=== PATIENT | female | born 1950 | race Caucasian/White ===

== ENCOUNTER → 2016-09-24 | Outpatient (CLI) | payer OTHER ==
[~2016-09-24] MED LIST: /LAMO10TA OR; ASPI1TAB PO; CELE10TA PO; CELE20TA OR; CITALOPRAM PO; ENAL10TA2 OR; IBUP20TA PO; INHALER; LAMOTRIGINE PO; LEVA750T PO; LISI10TA4 OR; LOPR50TA OR; METO25TA74 PO; NICO14DI3 TD; NICO21DI4 TD; NIFE15CA PO; NORV5TAB OR; PROT1TAB2 PO; SERAX PO; THIA100T OR; TOPR50TA OR; TRAZ50TA OR; TRAZODONE PO; TYLE325T5 PO; VICO5TAB OR
--- NOTE | 2016-09-24 11:58 | REP ---
Clinical: Lung screening. Technique: Low-dose noncontrast lung screening imaged and viewed in lung windows only. Findings: The bilateral lung goodman are well-aerated, symmetric, and clear. Incidental note is made of a benign calcified granuloma at the left lung base. No significant pulmonary parenchymal consolidation, nodule or mass lesion. No pleural effusion. No pneumothorax. Mediastinum is grossly normal. Atherosclerotic changes of the coronary arteries noted. Impression: No significant pulmonary parenchymal process. Category Lung-RADS 1 Signed by Getachew Wright MD 09/24/2016 11:51 A
== END | disposition home or self-care (01) ==
LOC: M RAD 11:10
PROVIDERS: ATTEND Nurse Practitioner Family
DX: Z12.2 Encounter for screening for malignant neoplasm of respiratory organs (principal); F17.200 Nicotine dependence, unspecified, uncomplicated; R91.8 Other nonspecific abnormal finding of lung field

== ENCOUNTER → 2016-11-06 | Outpatient (REF) | payer OTHER ==
[~2016-11-06] MED LIST changes: +IBUP200T45 PO; -IBUP20TA PO
[2016-11-06 12:45] LABS: ALBUMIN 3.1 GM/DL (3.2-5.2); ALKALINE PHOSPHATASE 97 U/L (45-117); ALT/SGPT 12 U/L (12-78); ANION GAP 12 MEQ/L (8-16); AST/SGOT 21 U/L (15-37); BILIRUBIN,TOTAL 0.6 MG/DL (0.2-1.0); BLOOD UREA NITROGEN 7 MG/DL (7-18); CALCIUM LEVEL 8.8 MG/DL (8.8-10.2); CARBON DIOXIDE LEVEL 27 MEQ/L (21-32); CHLORIDE LEVEL 93 MEQ/L (98-107); CREATININE FOR GFR 0.69 MG/DL (0.55-1.02); GLOMERULAR FILTRATION RATE > 60.0 (>45); GLUCOSE, FASTING 113 MG/DL (80-110); MAGNESIUM LEVEL 1.8 MG/DL (1.8-2.4); POTASSIUM SERUM 4.5 MEQ/L (3.5-5.1); SODIUM LEVEL 132 MEQ/L (136-145); TOTAL PROTEIN 7.5 GM/DL (6.4-8.2)
== END ==
LOC: M SFHCPLAZ 09:15
PROVIDERS: ATTEND Nurse Practitioner Family
DX: I10 Essential (primary) hypertension (principal); E83.42 Hypomagnesemia

== ENCOUNTER 2017-03-16 03:43 | Emergency (ER) | payer OTHER ==
[~2017-03-16] VITALS: Ht 162.6 cm; Wt 59.0 kg
[~2017-03-16 03:43] MED LIST changes: -LEVA750T PO; +LEVA750T7 PO; +METO1TAB32 PO; -METO25TA74 PO
--- NOTE | 2017-03-16 04:50 | REPUSA ---
CLINICAL HISTORY: Head trauma. TECHNIQUE: Multiple axial brain CT scan sections were obtained from base to vertex without contrast a dministration. COMMENTS: There is no evidence of skull fracture. The study shows normal configuration of sella turcica. There are no intra or extra-axial collections. There is no mass effect or midline shift. There is no evidence of hematoma formation. No hydrocephal us is present. No abnormal calcifications are noted. No significant abnormalities are seen either in the posterior fossa or supratentorial compartment. Chronic mucosal inflammatory changes in the left frontal, maxillary sinuses and ethmoid air cells. IMPRESSION: Chronic sinusitis. No evidence of acute intracranial pathology. No intracranial hemorrhage or skull fracture. Thank you for your kind referral of this patient.
[2017-03-16] MEDS ORDERED: TETANUS/DIPHTHERIA TOX ADSORB ADULT 0.5ML SYR/VIAL (90714) IM ONE (05:00)
[2017-03-16] MEDS ORDERED: DERMABOND TOPICAL SKIN ADHESIVE TOP ONE (05:45)
[2017-03-16 06:20] VITALS: BP 143/68
== END 2017-03-16 06:50 | disposition home or self-care (01) ==
LOC: M ED 03:43 → EDBD 03:43 → M ED 06:50
DX: S01.81XA Laceration without foreign body of other part of head, initial encounter (principal); S51.012A Laceration without foreign body of left elbow, initial encounter; F10.120 Alcohol abuse with intoxication, uncomplicated; W19.XXXA Unspecified fall, initial encounter; Y92.410 Unspecified street and highway as the place of occurrence of the external cause; Y93.89 Activity, other specified; Y99.8 Other external cause status; I10 Essential (primary) hypertension; K21.9 Gastro-esophageal reflux disease without esophagitis; F32.9 Major depressive disorder, single episode, unspecified; F17.200 Nicotine dependence, unspecified, uncomplicated

== ENCOUNTER → 2017-04-26 | Outpatient (CLI) | payer OTHER ==
--- NOTE | 2017-04-26 12:05 | REPMRS ---
Patient History The patient states she had a clinical breast exam in 05/02 Patient is postmenopausal. Family history of breast cancer in maternal aunt at age 50 or over. Digital Woman Screen Mammo: April 26, 2017 - Exam #: [id number] Bilateral CC and MLO view(s) were taken. Technologist: Olga Lidia Khoury, Technologist Prior study comparison: April 27, 2016, digital woman screen mammo performed at [facility]. June 07, 2015, digital woman screen mammo performed at [facility] to [facility]. FINDINGS: The breast tissue is heterogeneously dense. This may lower the sensitivity of mammography. There has been no change in the appearance of the mammogram from the prior studies. There is a moderate amount of residual fibroglandular tissue which is fairly symmetric. There is no interval development of dominant mass, areas of architectural distortion, or clustered microcalcification typical of malignancy. ASSESSMENT: BI-RADS/ACR category 1 mammogram. Negative. Recommendation Routine screening mammogram in 1 year (for women over age 40). This mammogram was interpreted with the aid of an FDA-approved computer-aided dectection system. Electronically Signed By: Haider Burk MD 04/26/17 [id number]
== END ==
LOC: M WHC 08:51
PROVIDERS: ATTEND Nurse Practitioner Family
DX: Z12.31 Encounter for screening mammogram for malignant neoplasm of breast (principal); Z78.0 Asymptomatic menopausal state; Z80.3 Family history of malignant neoplasm of breast

== ENCOUNTER → 2017-05-02 | Outpatient (REF) | payer OTHER ==
[2017-05-02 12:02] LABS: MEAN CORPUSCULAR HGB CONC 33.6 g/dl (32.0-36.5); MEAN CORPUSCULAR VOLUME 95.2 fl (80.0-96.0); RED CELL DISTRIBUTION WIDTH 12.5 % (11.5-14.5)
[2017-05-02 12:17] LABS: ALBUMIN 3.3 GM/DL (3.2-5.2); ALKALINE PHOSPHATASE 105 U/L (45-117); ALT/SGPT 14 U/L (12-78); ANION GAP 7 MEQ/L (8-16); AST/SGOT 21 U/L (15-37); BILIRUBIN,TOTAL 0.7 MG/DL (0.2-1.0); BLOOD UREA NITROGEN 3 MG/DL (7-18); CARBON DIOXIDE LEVEL 31 MEQ/L (21-32); CHLORIDE LEVEL 97 MEQ/L (98-107); CHOLESTEROL LEVEL 150 MG/DL (<200); CREATININE FOR GFR 0.57 MG/DL (0.55-1.02); FERRITIN 71 NG/ML (8-252); GLOMERULAR FILTRATION RATE > 60.0 (>45); GLUCOSE, FASTING 115 MG/DL (80-110); MAGNESIUM LEVEL 1.9 MG/DL (1.8-2.4); POTASSIUM SERUM 4.5 MEQ/L (3.5-5.1); SODIUM LEVEL 135 MEQ/L (136-145); TOTAL PROTEIN 7.4 GM/DL (6.4-8.2); TRIGLYCERIDES LEVEL 70 MG/DL (<150)
== END ==
LOC: M SFHCPLAZ 08:14
PROVIDERS: ATTEND Nurse Practitioner Family
DX: D50.8 Other iron deficiency anemias (principal); I10 Essential (primary) hypertension; R73.01 Impaired fasting glucose; K21.9 Gastro-esophageal reflux disease without esophagitis

== ENCOUNTER → 2017-08-21 | Outpatient (REF) | payer MEDICARE ==
[2017-08-21 11:27] LABS: ALBUMIN 3.4 GM/DL (3.2-5.2); ALBUMIN/GLOBULIN RATIO 0.87 (1.00-1.93); ALKALINE PHOSPHATASE 85 U/L (45-117); ALT/SGPT 14 U/L (12-78); ANION GAP 9 MEQ/L (8-16); AST/SGOT 15 U/L (7-37); BILIRUBIN,TOTAL 0.4 MG/DL (0.2-1.0); BLOOD UREA NITROGEN 3 MG/DL (7-18); CARBON DIOXIDE LEVEL 28 MEQ/L (21-32); CHLORIDE LEVEL 91 MEQ/L (98-107); CHOLESTEROL LEVEL 137 MG/DL (<200); CREATININE FOR GFR 0.55 MG/DL (0.55-1.02); GLOMERULAR FILTRATION RATE > 60.0 (>45); GLUCOSE, FASTING 105 MG/DL (80-110); POTASSIUM SERUM 4.6 MEQ/L (3.5-5.1); SODIUM LEVEL 128 MEQ/L (136-145); TOTAL PROTEIN 7.3 GM/DL (6.4-8.2); TRIGLYCERIDES LEVEL 72 MG/DL (<150)
== END ==
LOC: M SFHCPLAZ 09:34
PROVIDERS: ATTEND Nurse Practitioner Family
DX: E55.9 Vitamin D deficiency, unspecified (principal); I10 Essential (primary) hypertension

== ENCOUNTER → 2017-08-28 | Outpatient (REF) | payer MEDICARE ==
[2017-08-28 10:52] LABS: BASO # 0.1 10^3/uL (0.0-0.2); BASO % 1.1 % (0.0-1.0); EOS # 0.4 10^3/uL (0.0-0.50); EOS % 4.1 % (0.0-3.0); IMMATURE GRANULOCYTE % 0.6 % (0-0); LYMPH # 3.1 10^3/uL (1.5-4.5); LYMPH % 35.1 % (24.0-44.0); MEAN CORPUSCULAR HEMOGLOBIN 31.1 pg (27.0-33.0); MEAN CORPUSCULAR HGB CONC 33.9 g/dl (32.0-36.5); MEAN CORPUSCULAR VOLUME 91.6 fl (80.0-96.0); MONO % 11.6 % (0.0-5.0); NEUTROPHILS # 4.2 10^3/uL (1.8-7.7); NEUTROPHILS % 47.5 % (36.0-66.0); PLATELET COUNT, AUTOMATED 331 10^3/uL (150-450); RED CELL DISTRIBUTION WIDTH 12.1 % (11.5-14.5); WHITE BLOOD COUNT 8.8 10^3/uL (4.0-10.0)
[2017-08-28 11:24] LABS: FERRITIN 145 NG/ML (8-252); MAGNESIUM LEVEL 1.8 MG/DL (1.8-2.4); PERCENT SATURATION 27.6 % (13.2-45.0); TOTAL IRON BINDING CAPACITY 221 UG/DL (250-450)
[2017-08-28 11:50] LABS: FOLATE > 24.0 NG/ML; VITAMIN B12 LEVEL 1309 PG/ML
== END ==
LOC: M SFHCPLAZ 08:36
PROVIDERS: ATTEND Nurse Practitioner Family
DX: R53.83 Other fatigue (principal); K21.9 Gastro-esophageal reflux disease without esophagitis; I10 Essential (primary) hypertension; J45.20 Mild intermittent asthma, uncomplicated; J30.89 Other allergic rhinitis; D50.8 Other iron deficiency anemias; E55.9 Vitamin D deficiency, unspecified; Z23 Encounter for immunization; Z87.898 Personal history of other specified conditions

== ENCOUNTER → 2017-11-26 | Outpatient (REF) | payer MEDICARE ==
[2017-11-26 12:18] LABS: ALBUMIN 3.5 GM/DL (3.2-5.2); ALBUMIN/GLOBULIN RATIO 0.85 (1.00-1.93); ALKALINE PHOSPHATASE 108 U/L (45-117); ALT/SGPT 13 U/L (12-78); ANION GAP 9 MEQ/L (8-16); AST/SGOT 19 U/L (7-37); BILIRUBIN,TOTAL 0.5 MG/DL (0.2-1.0); BLOOD UREA NITROGEN 4 MG/DL (7-18); CALCIUM LEVEL 8.9 MG/DL (8.8-10.2); CARBON DIOXIDE LEVEL 29 MEQ/L (21-32); CHLORIDE LEVEL 94 MEQ/L (98-107); CHOLESTEROL LEVEL 181 MG/DL (<200); CHOLESTEROL RISK RATIO 1.508 (<5); CREATININE FOR GFR 0.64 MG/DL (0.55-1.30); GLOMERULAR FILTRATION RATE > 60.0 (>45); GLUCOSE, FASTING 123 MG/DL (70-100); HDL CHOLESTEROL 120 MG/DL (>40); LDL CHOLESTEROL 45.6 MG/DL (<100); NON-HDL-C 61 MG/DL; POTASSIUM SERUM 4.4 MEQ/L (3.5-5.1); SODIUM LEVEL 132 MEQ/L (136-145); TOTAL PROTEIN 7.6 GM/DL (6.4-8.2); TRIGLYCERIDES LEVEL 77 MG/DL (<150)
== END ==
LOC: M SFHCPLAZ 08:29
DX: I10 Essential (primary) hypertension (principal)
CPT/HCPCS: 80053

== ENCOUNTER → 2018-01-09 | Outpatient (CLI) | payer MEDICARE | LOC: M RAD 09:03 | DX: F17.210 Nicotine dependence, cigarettes, uncomplicated (principal) | CPT/HCPCS: G0297 ==

== ENCOUNTER → 2018-03-06 | Outpatient (REF) | payer MEDICARE ==
[2018-03-06 12:33] LABS: ALBUMIN 3.5 GM/DL (3.2-5.2); ALKALINE PHOSPHATASE 144 U/L (45-117); ALT/SGPT 25 U/L (12-78); ANION GAP 9 MEQ/L (8-16); AST/SGOT 36 U/L (7-37); BILIRUBIN,TOTAL 0.8 MG/DL (0.2-1.0); BLOOD UREA NITROGEN 6 MG/DL (7-18); CARBON DIOXIDE LEVEL 32 MEQ/L (21-32); CHLORIDE LEVEL 93 MEQ/L (98-107); CREATININE FOR GFR 0.67 MG/DL (0.55-1.30); GLOMERULAR FILTRATION RATE > 60.0 (>45); GLUCOSE, FASTING 130 MG/DL (70-100); POTASSIUM SERUM 4.4 MEQ/L (3.5-5.1); SODIUM LEVEL 134 MEQ/L (136-145); TOTAL PROTEIN 7.4 GM/DL (6.4-8.2)
[2018-03-06 12:56] LABS: ESTIMATED AVERAGE GLUCOSE 100 MG/DL (60-110); HEMOGLOBIN A1c 5.1 %
== END ==
LOC: M SFHCPLAZ 08:11
DX: R73.01 Impaired fasting glucose (principal)
CPT/HCPCS: 80053

== ENCOUNTER → 2018-08-12 | Outpatient (REF) | payer MEDICARE | LOC: M SFHCWAGY 09:13 | DX: Z12.4 Encounter for screening for malignant neoplasm of cervix (principal) | CPT/HCPCS: G0123 ==

== ENCOUNTER → 2018-08-12 | Outpatient (CLI) | payer MEDICARE | LOC: M WHC 08:52 | DX: Z12.31 Encounter for screening mammogram for malignant neoplasm of breast (principal); Z78.0 Asymptomatic menopausal state; Z12.4 Encounter for screening for malignant neoplasm of cervix; Z12.12 Encounter for screening for malignant neoplasm of rectum | CPT/HCPCS: 77067; G0123 ==

== ENCOUNTER → 2018-09-29 | Outpatient (CLI) | payer MEDICARE ==
--- NOTE | 2018-09-30 11:05 | DEXA ---
AP SPINE L1 - L4 0.699 -4.0 -2.4 LT FEMUR TOTAL 0.576 -3.4 -2.2 LT NECK 0.617 -3.0 -1.5 RT FEMUR TOTAL 0.575 -3.4 -2.2 RT NECK 0.598 -3.2 -1.7 TOTAL BODY TOTAL OTHER COMMENTS: There is osteoporosis of the spine and hips. The density of the spine has decreased 2.8% since the initial exam on 01/01/2013. The spine density has decreased 5.8% since the most recent exam on 06/07/2015. The density of the left hip has decreased 11.8% since the initial exam on 01/01/2013. The density of the left hip has decreased 7.8% since the most recent exam on 06/07/2015. FOLLOW-UP: Recommendation for the next bone density exam: 2 years. MEGA
== END ==
LOC: M WHC 09:12
PROVIDERS: ATTEND Nurse Practitioner Family
DX: M81.0 Age-related osteoporosis without current pathological fracture (principal)

== ENCOUNTER 2019-03-20 16:53 | Inpatient (IN) | payer MEDICARE, MEDICAID ==
[~2019-03-20] VITALS: Ht 162.6 cm; Wt 53.3 kg
[~2019-03-20 16:53] MED LIST changes: -/LAMO10TA OR; -ASPI1TAB PO; +ASPI81TA26 PO; +LAMI1TAB7 OR; +METO-743 OR; -TOPR50TA OR
[2019-03-20] MEDS ORDERED: FUROSEMIDE 40 MG/4 ML VIAL (J1940) IV ONE (17:15)
--- NOTE | 2019-03-20 17:36 | REP ---
Clinical: Cough and dyspnea . Comparison: 07/12/2015 . Findings: The mediastinum and cardiac silhouette are stable and within normal limits for portable technique. The lung goodman demonstrate diffuse chronic changes including calcified granulomata without acute consolidation, effusion, or pneumothorax. Skeletal structures are intact. Impression: No acute cardiopulmonary process appreciated. Electronically Signed by Getachew Wright MD 03/20/2019 05:27 P
[2019-03-20 17:54] LABS: BASO # 0.1 10^3/uL (0.0-0.2); BASO % 1.4 % (0.0-1.0); EOS # 0.1 10^3/uL (0.0-0.50); HEMOGLOBIN 10.1 g/dl (12.0-15.5); LYMPH # 0.9 10^3/uL (1.5-4.5); LYMPH % 18.1 % (24.0-44.0); MEAN CORPUSCULAR HEMOGLOBIN 33.2 pg (27.0-33.0); MEAN CORPUSCULAR HGB CONC 32.6 g/dl (32.0-36.5); MONO # 0.7 10^3/uL (0.0-0.8); MONO % 13.1 % (0.0-5.0); NEUTROPHILS # 3.3 10^3/uL (1.8-7.7); NEUTROPHILS % 65.6 % (36.0-66.0); PLATELET COUNT, AUTOMATED 184 10^3/uL (150-450); RED BLOOD COUNT 3.04 10^6/uL (4.00-5.40)
--- NOTE | 2019-03-20 18:40 | REPVR ---
EXAM: US Duplex Bilateral Lower Extremity Veins EXAM DATE/TIME: 03/20/2019 5:53 PM CLINICAL HISTORY: 68 years old, female; Edema, localized and swelling (edema) of limb; Lower extremity, bilateral TECHNIQUE: Imaging protocol: Real-time duplex ultrasound of the Bilateral Lower Extremities with 2-D membreno scale, color Doppler flow and spectral waveform analysis. Complete exam focused on the bilateral lower extremity veins. COMPARISON: No relevant prior studies available. FINDINGS: Right deep veins: Unremarkable. The common femoral, femoral, proximal profunda femoral and popliteal veins are patent without thrombus. Normal Doppler waveforms. Normal compressibility and/or augmentation response. Right superficial veins: Saphenofemoral junction is patent without thrombus. Left deep veins: Unremarkable. The common femoral, femoral, proximal profunda femoral and popliteal veins are patent without thrombus. Normal Doppler waveforms. Normal compressibility and/or augmentation response. Left superficial veins: Saphenofemoral junction is patent without thrombus. Soft tissues: Unremarkable. IMPRESSION: No evidence of deep venous thrombosis in the bilateral lower extremities. Electronically signed by: Cait Madrid On 03/20/2019 18:39:46 PM
[2019-03-20 18:50] LABS: ACETAMINOPHEN LEVEL < 2.0 UG/ML (10.0-30.0); ALT/SGPT 27 U/L (12-78); BILIRUBIN,TOTAL 2.7 MG/DL (0.2-1.0); BLOOD UREA NITROGEN 4 MG/DL (7-18); CALCIUM LEVEL 8.4 MG/DL (8.8-10.2); CARBON DIOXIDE LEVEL 20 MEQ/L (21-32); CHLORIDE LEVEL 102 MEQ/L (98-107); CPK CREATINE PHOSPHOKINASE 26 U/L (26-192); CREATININE FOR GFR 0.64 MG/DL (0.55-1.30); ETHYL ALCOHOL (ETHANOL) < 0.003 % (0.000-0.010); GLOMERULAR FILTRATION RATE > 60.0 (>45); GLUCOSE, FASTING 71 MG/DL (70-100); MB/CK RELATIVE INDEX 3.85 (< OR =4); NT-PRO BNP 1582 PG/ML (<125); SALICYLATE LEVEL < 1.7 MG/DL (5.0-30.0); SODIUM LEVEL 136 MEQ/L (136-145); THYROXINE (T4) 5.1 UG/DL (4.5-12.0); TOTAL PROTEIN 6.1 GM/DL (6.4-8.2); TROPONIN I < 0.02 NG/ML (< 0.10)
[2019-03-20 19:13] LABS: VENOUS BASE EXCESS -5.5 (-2.0-2.0); VENOUS HCO3 19.9 MEQ/L (23.0-27.0); VENOUS O2 SATURATION 88.2 % (60.0-80.0); VENOUS PARTIAL PRESSURE CO2 38.1 mmHg (38.0-50.0); VENOUS PH 7.335 UNITS (7.330-7.430); VENOUS STANDARD HCO3 19.8 MEQ/L
[2019-03-20 19:40] LABS: INR 1.52
[2019-03-20] MEDS: IPRATROPIUM 0.5MG/ALBUTEROL 2.5MG INH SOL UD 3ML (DUONEB)(J7620) NEB SCH (20:00)
[2019-03-20] MEDS ORDERED: ACETAMINOPHEN TAB 650MG DOSE (2X325MG) PO PRN (20:15)
--- NOTE | 2019-03-20 20:18 | REPVR ---
EXAM: CT Head Without Contrast EXAM DATE/TIME: 03/20/2019 7:46 PM CLINICAL HISTORY: 68 years old, female; Weakness, extremity; Additional info: Can't walk TECHNIQUE: Imaging protocol: Axial computed tomography images of the head without contrast. Radiation optimization: All CT scans at this facility use at least one of these dose optimization techniques: automated exposure control; mA and/or kV adjustment per patient size (includes targeted exams where dose is matched to clinical indication); or iterative reconstruction. COMPARISON: CT Head without contrast 03/16/2017 4:17 AM FINDINGS: Brain: The brain demonstrates advanced for age cerebral and cerebellar volume loss which has progressed since prior. No visible evolving territorial infarct. No hemorrhage. Ventricles: The ventricles appear moderately enlarged in keeping with volume loss, mildly larger compared to the prior study. Bones/joints: The calvarium appears demineralized. Sinuses: Visualized sinuses are unremarkable. No fluid levels. Mastoid air cells: Visualized mastoid air cells are well aerated. No mastoid effusion. Auditory system: There is material in the bilateral external auditory canals which presumably represents cerumen. Soft tissues: Unremarkable. IMPRESSION: 1. No acute intracranial abnormality seen. 2. Progressive cerebral and cerebellar volume loss since March of 2017. Electronically signed by: Cait Madrid On 03/20/2019 20:18:32 PM
[2019-03-20] MEDS ORDERED: APAP325T4 PO (20:33)
[2019-03-20] MEDS ORDERED: MULTCAP PO (20:37)
[2019-03-20] MEDS ORDERED: MAGN400T2 PO (20:37)
[2019-03-20] MEDS ORDERED: IRON65TA2 PO (20:37)
[2019-03-20] MEDS ORDERED: ZINC1TAB2 PO (20:37)
[2019-03-20] MEDS ORDERED: CALC500T68 PO (20:37)
--- NOTE | 2019-03-20 20:41 | HPEPDOC ---
General Date of Admission Mar 20, 2019 at 19:38 Date of Service: Mar 20, 2019 Attending Physician: JUANIS BORGES DO Chief Complaint The patient is a 68-year-old female admitted with a reason for visit of Debility. History of Present Illness Patient is a 68-year-old female, presenting to the emergency room at the behest of her friend who called EMS services due to weakness and lower extremity swelling. Patient has a past medical history significant for alcohol abuse, seizure disorder, COPD, hypertension. Patient was unable to provide a coherent history. However, complains of increased weakness to bilateral lower extremity and inability to ambulate for about 4 days. A friend who was concerned, called EMS services and patient was brought to the emergency room. Lasix was administered in the emergency room for lower extremity swelling and it is reported that patient was able to ambulate about 10 feet, but had to sit down due to severe weakness. Ultrasound of bilateral lower extremity was negative for DVT, laboratory data was remarkable for bilirubin of 2.7, alkaline phosphatase of 185, proBNP of 1582, TSH of 5.5-0. Chest x-ray completed for dyspnea was negative for acute cardiopulmonary process. Venous gas was within normal limits. Home Medications Scheduled Calcium Carbonate (Calcium) 500 Mg Tab.chew, 500 MG PO DAILY, (Reported) Ferrous Sulfate (Iron) 325 Mg Tablet, 325 MG PO DAILY, (Reported) Magnesium Oxide (Magnesium Oxide) 400 Mg Tablet, 400 MG PO DAILY, (Reported) Metoprolol Succinate (Metoprolol Succinate) 25 Mg Tab, 25 MG PO DAILY, (Reported) Multivitamin (Multivitamins) 1 Each Capsule, 1 CAP PO DAILY, (Reported) Pantoprazole Sodium (Protonix) 40 Mg Tab, 40 MG PO BID, (Reported) Zinc (Zinc) 50 Mg Tablet, 50 MG PO DAILY, (Reported) Scheduled PRN Acetaminophen (Acetaminophen) 325 Mg Tablet, 500 MG PO Q6H PRN for PAIN / FEVER, (Reported) Allergies Coded Allergies: No Known Allergies (Verified , 01/09/11) Past Medical History Medical History Hypertension. Alcohol abuse. COPD Seizure disorder. Nicotine dependence Surgical History Pancreatic surgery Family History Patient is unsure of family history Social History * Smoker: current smoker, less than 1 pack/day Alcohol: Denies Drugs: denies A-FIB/CHADSVASC A-FIB History Current/History of A-Fib/PAF?: No Current PO Anticoag Therapy: No Review of Systems Other systems Very limited review of systems is completed due to patient's mental status Physical Examination Other physical findings GENERAL: pale appearing frail looking female in no acute distress SKIN : jaundiced, erythema to BLE HEENT: Atraumatic, normocephalic, icteric scelera, PERRL, moist mucous membrane CARDIOVASCULAR: tachycardic, regular rate and rhythm, S1S2, no JVD, BLE 3+ edema, distal pulses not palpable RESP: CTAB, mild accessory muscle use noted ABDOMEN: BS hypoactive, non distended non tender MS: no joint deformities NEURO: Alert and oriented x 3, some confusion is present, CN2-12 grossly intact PSYCH: no anxiety or agitation, appropriate mood and affect. Vital Signs Vital Signs Date Time Temp Pulse Resp B/P (MAP) Pulse Ox O2 Delivery O2 Flow Rate FiO2 03/20/19 19:30 143/65 (91) 03/20/19 19:23 146 100 03/20/19 17:09 98.2 18 Room Air Laboratory Data Labs 24H Laboratory Tests 2 03/20/19 17:47: Immature Granulocyte % (Auto) 0.8, White Blood Count 5.0, Red Blood Count 3.04L, Hemoglobin 10.1L, Hematocrit 31.0L, Mean Corpuscular Volume 102.0H, Mean Corpuscular Hemoglobin 33.2H, Mean Corpuscular Hemoglobin Concent 32.6, Red Cell Distribution Width 17.4H, Platelet Count 184, Neutrophils (%) (Auto) 65.6, Lymphocytes (%) (Auto) 18.1L, Monocytes (%) (Auto) 13.1H, Eosinophils (%) (Auto) 1.0, Basophils (%) (Auto) 1.4H, Neutrophils # (Auto) 3.3, Lymphocytes # (Auto) 0.9L, Monocytes # (Auto) 0.7, Eosinophils # (Auto) 0.1, Basophils # (Auto) 0.1, Nucleated Red Blood Cells % (auto) 0.0, Anion Gap 14, Glomerular Filtration Rate > 60.0, Lactic Acid Level 1.0, Calcium Level 8.4L, Aspartate Amino Transf (AST/SGOT) 58H, Alanine Aminotransferase (ALT/SGPT) 27, Alkaline Phosphatase 185H, Total Bilirubin 2.7H, Direct Bilirubin 2.0H, Total Creatine Kinase 26, Creatine Kinase MB 1.0, Creatine Kinase MB Relative Index 3.85, Troponin I < 0.02, DU-Tob-T-Type Natriuretic Peptide 1582H, Total Protein 6.1L, Albumin 2.0L, Albumin/Globulin Ratio 0.49L, Thyroid Stimulating Hormone (TSH) 5.520H, Thyroxine (T4) 5.1, Salicylates Level < 1.7L, Acetaminophen Level < 2.0L, Ethyl Alcohol Level < 0.003 03/20/19 18:59: Prothrombin Time 18.0H, Prothromb Time International Ratio 1.52, Blood Gas Bicarbonate Standard 19.8, Venous Blood pH 7.335, Venous Blood Partial Pressure CO2 38.1, Venous Blood Partial Pressure O2 62.0H, Venous Blood Total Carbon Dioxide 21.0L, Venous Blood HCO3 19.9L, Venous Blood Oxygen Saturation 88.2H, Venous Blood Base Excess -5.5L 03/20/19 19:39: 03/20/19 20:09: CBC/BMP Laboratory Tests 03/20/19 17:47 Red Blood Count 3.04 L, Mean Corpuscular Volume 102.0 H, Mean Corpuscular He moglobin 33.2 H, Mean Corpuscular Hemoglobin Concent 32.6, Red Cell Distribution Width 17.4 H, Neutrophils (%) (Auto) 65.6, Lymphocytes (%) (Auto) 18.1 L, Monocytes (%) (Auto) 13.1 H, Eosinophils (%) (Auto) 1.0, Basophils (%) (Auto) 1.4 H, Neutrophils # (Auto) 3.3, Lymphocytes # (Auto) 0.9 L, Monocytes # (Auto) 0.7, Eosinophils # (Auto) 0.1, Basophils # (Auto) 0.1 Assessment/Plan Bilateral lower extremity swelling -Bilateral lower extremity ultrasound negative for DVT -Unclear etiology in a patient presenting with tachycardia and mild shortness of breath -Patient denies any other symptoms of chest pain -2-D echocardiogram to evaluate for heart failure Seizure disorder -Prior history is significant for seizure disorder and there is report patient was found in her feces at home -Seizure precautions -CT brain negative for acute process Alcohol abuse -Patient denies alcohol use for the past 4 months -Alcohol withdrawal protocol -B-12 level, thiamine, folate -Replete electrolytes to keep potassium greater than 4, magnesium greater than 2 -Follow 2-D echo findings for cardiomyopathy Tachycardia -presenting HR in the 120s -2D echo to assess for tachycardia induced cardiomyopathy -place in monitored bed to exclude malignant arrhythmia COPD -likely due to chronic nicotine dependence -scheduled bronchodilator therapy and as needed -monitoring of O2 sats with vitals to keep greater than 92% Weakness and debility -PT, OT evaluation for rehabilitation potential and discharge needs DVT prophylaxis -Lovenox 40mg daily Plan / VTE VTE Prophylaxis Ordered?: Yes [facility] REGISTERED NURSE Mar 20, 2019 20:41
[2019-03-20 21:03] LABS: VITAMIN B12 LEVEL > 2000 PG/ML (247-911)
[2019-03-20] MEDS ORDERED: ISOVUE-370 76% 100ML VIAL (Q9967) As Ordered ONE (22:13)
[2019-03-20 23:40] VITALS: BP 138/60
--- NOTE | 2019-03-20 23:43 | REPVR ---
EXAM: CT Angiography Chest With Contrast EXAM DATE/TIME: 03/20/2019 9:43 PM CLINICAL HISTORY: 68 years old, female; Chest pain; Type not specified; Additional Info: SOB, tachycardic - R/O PE TECHNIQUE: Imaging protocol: Axial computed tomographic angiography images of the chest with intravenous contrast using CT angiography protocol. Coronal and sagittal reformatted images were created and reviewed. 3D rendering: MIP reconstructed images were created and reviewed. Radiation optimization: All CT scans at this facility use at least one of these dose optimization techniques: automated exposure control; mA and/or kV adjustment per patient size (includes targeted exams where dose is matched to clinical indication); or iterative reconstruction. Contrast material: ISO; Contrast volume: 100 ml; Contrast route: HAND; COMPARISON: CR PORTABLE CHEST X-RAY 03/20/2019 5:19 PM FINDINGS: Limitations: Examination is limited by motion artifact. Pulmonary arteries: Normal. No pulmonary emboli. Aorta: Mild atherosclerotic disease. No aortic aneurysm. No aortic dissection. Lungs: No consolidation. No masses. Mild bronchial mucous plugging in the lower lobes bilaterally. Calcific granuloma in the left lower lobe the Pleural space: Unremarkable. No pneumothorax. No pleural effusion. Heart: Unremarkable. No cardiomegaly. No pericardial effusion. Coronary arteries: Severe coronary artery calcification. Liver: Fatty infiltration of the liver. Gallbladder and bile ducts: Status post cholecystectomy. Lymph nodes: Small calcified mediastinal nodes. No lymphadenopathy. Bones/joints: Multiple chronic compression deformities of the thoracic spine. No acute fracture. Multiple chronic right rib fractures. Soft tissues: Unremarkable. IMPRESSION: 1. Negative for pulmonary embolism. 2. Mild bronchial mucous plugging in the lower lobes bilaterally. 3. See also CT abdomen pelvis report. Electronically signed by: Charlee Rapp On 03/20/2019 23:42:57 PM
--- NOTE | 2019-03-20 23:47 | REPVR ---
EXAM: CT Abdomen and Pelvis With Contrast EXAM DATE/TIME: 03/20/2019 9:43 PM CLINICAL HISTORY: 68 years old, female; Abdominal pain; Generalized; Additional Info: Leg edema, cirrhosis, ascites TECHNIQUE: Imaging protocol: Axial computed tomography images of the abdomen and pelvis with intravenous contrast. Coronal and sagittal reformatted images were created and reviewed. Radiation optimization: All CT scans at this facility use at least one of these dose optimization techniques: automated exposure control; mA and/or kV adjustment per patient size (includes targeted exams where dose is matched to clinical indication); or iterative reconstruction. Contrast material: ISO; Contrast volume: 100 ml; Contrast route: HAND; COMPARISON: CT ABD PELVIS WITH CONTRAST 05/20/2015 8:25 AM FINDINGS: Liver: Fatty infiltration of the liver. Gallbladder and bile ducts: Status post cholecystectomy. CBD measures 12 mm in diameter. No biliary ductal dilatation. Pancreas: Multiple pancreatic calcifications. Atrophy of the pancreas. Pancreatic duct is dilated. Spleen: No splenomegaly. Calcified granuloma in the spleen. Adrenals: Normal. No mass. Kidneys and ureters: Normal. No hydronephrosis. Stomach and bowel: Diffuse thickening of the duodenal bulb. No abnormal bowel dilatation. Negative for colonic diverticulitis. Right colon is decompressed and thickened. Appendix: No evidence of appendicitis. Intraperitoneal space: Moderate ascites. No free air. Vasculature: Moderate atherosclerotic disease. No aortic aneurysm. Lymph nodes: Normal. No enlarged lymph nodes. Bladder: Unremarkable as visualized. Reproductive: Uterus is normal. Bones/joints: Multiple chronic compression deformity of T11, L1 and L5. No acute fracture. Chronic fracture of the right pubic body. Soft tissues: There is dependent subcutaneous edema. IMPRESSION: 1. Diffuse thickening of the duodenal bulb. Suspicious for duodenitis. 2. Right colon is decompressed and thickened. Colitis cannot be excluded. 3. Fatty infiltration of the liver. 4. Dilatation of the pancreatic duct. No change from prior. 5. Multiple pancreatic calcifications consistent with chronic pancreatitis. 6. Biliary ductal dilatation. No change from prior. 7. Moderate ascites. Unknown etiology. 8. Additional findings as described. Electronically signed by: Charlee Rapp On 03/20/2019 23:47:24 PM
[2019-03-21] VITALS (7 sets, daily range): BP systolic 102–155; BP diastolic 55–99
[2019-03-21 06:46] LABS: HEMATOCRIT 29.5 % (36.0-47.0); HEMOGLOBIN 9.6 g/dl (12.0-15.5); MEAN CORPUSCULAR HEMOGLOBIN 32.3 pg (27.0-33.0); MEAN CORPUSCULAR HGB CONC 32.5 g/dl (32.0-36.5); MEAN CORPUSCULAR VOLUME 99.3 fl (80.0-96.0); PLATELET COUNT, AUTOMATED 151 10^3/uL (150-450); RED BLOOD COUNT 2.97 10^6/uL (4.00-5.40); WHITE BLOOD COUNT 5.3 10^3/uL (4.0-10.0)
[2019-03-21 07:00] LABS: ALBUMIN 1.7 GM/DL (3.2-5.2); ALT/SGPT 26 U/L (12-78); BILIRUBIN,TOTAL 2.5 MG/DL (0.2-1.0); BLOOD UREA NITROGEN 3 MG/DL (7-18); CARBON DIOXIDE LEVEL 22 MEQ/L (21-32); CHLORIDE LEVEL 101 MEQ/L (98-107); CREATININE FOR GFR 0.57 MG/DL (0.55-1.30); GLOMERULAR FILTRATION RATE > 60.0 (>45); GLUCOSE, FASTING 75 MG/DL (70-100); POTASSIUM SERUM 3.6 MEQ/L (3.5-5.1); SODIUM LEVEL 135 MEQ/L (136-145); TOTAL PROTEIN 5.7 GM/DL (6.4-8.2)
[2019-03-21] MEDS: IPRATROPIUM 0.5MG/ALBUTEROL 2.5MG INH SOL UD 3ML (DUONEB)(J7620) NEB SCH ×3 (08:13→20:05)
[2019-03-21] MEDS: THIAMINE 100 MG TAB PO SCH (09:39)
[2019-03-21] MEDS: FOLIC ACID 1 MG TAB PO SCH (09:39)
[2019-03-21] MEDS: ENOXAPARIN 40 MG/0.4 ML SYRINGE (J1650) SC SCH (09:40)
--- NOTE | 2019-03-21 11:15 | ECGEPIP ---
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
[2019-03-22] VITALS (7 sets, daily range): BP systolic 98–134; BP diastolic 57–79
[2019-03-22] MEDS: IPRATROPIUM 0.5MG/ALBUTEROL 2.5MG INH SOL UD 3ML (DUONEB)(J7620) NEB SCH ×3 (07:49→19:55)
[2019-03-22] MEDS: THIAMINE 100 MG TAB PO SCH (08:33)
[2019-03-22] MEDS: FOLIC ACID 1 MG TAB PO SCH (08:33)
[2019-03-22] MEDS: ENOXAPARIN 40 MG/0.4 ML SYRINGE (J1650) SC SCH (08:33)
--- NOTE | 2019-03-22 12:34 | IPNPDOC ---
Text Note Date of Service The patient was seen on 03/21/19. NOTE Upon my evaluation pt is AAOx3, denies any dyspnea or tachypnea. PT LE edema has improved. Denies any acute distress. PHE: GENERAL: pt is AAOx3 appears frail elderly lady HEENT: ASHLEY EOMI mucus membrane moist, atraumatic, normocephalic, icteric sclera, CARDIOVASCULAR: S1 S2 no murmur no JVD RESP: no wheezing no rales ABDOMEN: soft not distended not tender no ascites MS: no joint deformities NEURO: motor sensory intact PSYCH: no anxiety or agitation, appropriate mood and affect. Vital Signs Date Time Temp Pulse Resp B/P (MAP) Pulse Ox O2 Delivery O2 Flow Rate FiO2 03/22/19 10:00 96.9 125 18 119/65 (83) 98 03/22/19 08:33 115 126/74 (91) 130 124/79 (94) 139 122/77 (92) 03/22/19 08:33 130 124/79 03/22/19 06:00 86 102/59 03/22/19 06:00 97.1 91 18 97 03/22/19 06:00 86 102/59 (73) 94 98/60 (73) 104 109/63 (78) 03/22/19 02:00 98.1 95 18 109/57 (74) 96 03/21/19 22:00 72 120/86 03/21/19 22:00 98.2 71 16 120/86 (97) 99 03/21/19 18:00 98.5 102 18 120/99 (106) 98 03/21/19 14:00 99.1 110 20 144/55 (84) 95 Intake & Output 03/22/19 06:00 Intake Total 1130 ml Output Total 350 ml Balance 780 ml Microbiology 03/20/19 MRSA Screen - Final, Complete Staph.aureus Methicillin Resis Current Medications Medications (Trade) Dose Ordered Sig/Jerod Route PRN Reason Start Time Stop Time Status Last Admin Dose Admin Albuterol/ Ipratropium (Duoneb (Ipr 0.5mg/Alb 2.5mg)) 3 ml RTID NEB 03/20/19 20:00 03/22/19 07:49 3 ML Enoxaparin Sodium (Lovenox) 40 mg DAILY SC 03/21/19 09:00 03/22/19 08:33 40 MG Folic Acid (Folic Acid) 1 mg DAILY PO 03/21/19 09:00 03/22/19 08:33 1 MG Thiamine HCl (Thiamine HCl) 100 mg DAILY PO 03/21/19 09:00 03/22/19 08:33 100 MG A/P 1-LE edema , bilat likely sec to volume overload due to CHF versus cirrhosis 2DEcho pending s/p diuretics in ED improved clinically 2-Seizure disorder Prior history is significant for seizure disorder and there is report patient was found in her feces at home Seizure precautions CT brain negative for acute process 3-ETOH use disorder Patient denies alcohol use for the past 4 months Alcohol withdrawal protocol B-12 level, thiamine, folate Replete electrolytes to keep potassium greater than 4, magnesium greater than 2 Follow 2-D echo findings for cardiomyopathy 4-COPD scheduled bronchodilator therapy and as needed monitoring of O2 sats with vitals to keep greater than 92% 5-Weakness and debility PT, OT evaluation for rehabilitation potential and discharge needs SW/CM consult DVT prophylaxis -Lovenox 40mg daily VS,Fishbone, I+O VS, Fishbone, I+O Vital Signs Date Time Temp Pulse Resp B/P (MAP) Pulse Ox O2 Delivery O2 Flow Rate FiO2 03/22/19 10:00 96.9 125 18 119/65 (83) 98 03/20/19 23:32 Room Air I&O- Last 24 Hours up to 6 AM 03/22/19 06:00 Intake Total 1130 ml Output Total 350 ml Balance 780 ml CARROL BABB MD Mar 22, 2019 12:34
--- NOTE | 2019-03-22 14:03 | ECHO ---
DATE OF PROCEDURE: 03/21/2019 REFERRING PHYSICIAN: Dr. Loaiza. INDICATION: Edema Height 162 cm Weight 53 kg. DIMENSIONS: IVS 0.9 LV 4.3 LVPW 0.9 LA 3.0 Aorta 3.0 RV 2.8 IVC 1.9 Mitral E wave velocity 106 E prime septal 11.6, E prime lateral 22.6 FINDINGS: Study is of difficult technical quality. The patient is in sinus tachycardia with ventricular heart rate ventricular rate approximately 130 bpm. Left ventricle is normal size and normal systolic function, I estimate EF around 65-70%. No obvious segmental wall segmental wall motion abnormalities are noted. Right ventricle appears grossly normal. Both atria appear normal. Aortic valve is mildly sclerotic but I cannot comment much on its structure due to limited visualization. Mitral and tricuspid valves were also poorly visualized but grossly appear normal. Pulmonic valve was not well seen. No pericardial effusion is present. Inferior vena cava is on upper limits of normal size but collapses with respiration. Aortic root is normal. Aortic arch and abdominal aorta were not well seen. Doppler interrogation reveals no aortic stenosis or insufficiency. Same applies for mitral and tricuspid valves. Mitral inflow pattern reveals summation pattern due to underlying tachycardia but tissue Doppler velocities of mitral annulus are very high and consequently I believe the patient has preserved diastolic function. CONCLUSIONS: 1. Study is of rather limited technical quality. 2. Normal LV size with hyperdynamic LV systolic function and probably normal diastolic function. 3. No significant valvular disease. 4. Likely normal central venous pressure. 5. Unable to estimate pulmonary artery pressure. COMMENT: SBE prophylaxis is not recommended.
--- NOTE | 2019-03-22 16:26 | IPNPDOC ---
Text Note Date of Service The patient was seen on 03/22/19. NOTE Pt was seen and examined at bedside. Pt states she has difficulty getting out of bed due to weakness on LE. Otherwise, denies any dyspnea tachypnea chest pain or palpitations. PHE: GENERAL: pt is AAOx3 appears frail elderly lady HEENT: ASHLEY EOMI mucus membrane moist, atraumatic, normocephalic, icteric sclera, CARDIOVASCULAR: S1 S2 no murmur no JVD RESP: no wheezing no rales ABDOMEN: soft not distended not tender no ascites MS: no joint deformities NEURO: motor sensory intact PSYCH: no anxiety or agitation, appropriate mood and affect. Vital Signs Date Time Temp Pulse Resp B/P (MAP) Pulse Ox O2 Delivery O2 Flow Rate FiO2 03/22/19 10:00 96.9 125 18 119/65 (83) 98 03/22/19 08:33 115 126/74 (91) 130 124/79 (94) 139 122/77 (92) 03/22/19 08:33 130 124/79 03/22/19 06:00 86 102/59 03/22/19 06:00 97.1 91 18 97 03/22/19 06:00 86 102/59 (73) 94 98/60 (73) 104 109/63 (78) 03/22/19 02:00 98.1 95 18 109/57 (74) 96 03/21/19 22:00 72 120/86 03/21/19 22:00 98.2 71 16 120/86 (97) 99 03/21/19 18:00 98.5 102 18 120/99 (106) 98 03/21/19 14:00 99.1 110 20 144/55 (84) 95 Intake & Output 03/22/19 06:00 Intake Total 1130 ml Output Total 350 ml Balance 780 ml Microbiology 03/20/19 MRSA Screen - Final, Complete Staph.aureus Methicillin Resis Current Medications Medications (Trade) Dose Ordered Sig/Jerod Route PRN Reason Start Time Stop Time Status Last Admin Dose Admin Albuterol/ Ipratropium (Duoneb (Ipr 0.5mg/Alb 2.5mg)) 3 ml RTID NEB 03/20/19 20:00 03/22/19 07:49 3 ML Enoxaparin Sodium (Lovenox) 40 mg DAILY SC 03/21/19 09:00 03/22/19 08:33 40 MG Folic Acid (Folic Acid) 1 mg DAILY PO 03/21/19 09:00 03/22/19 08:33 1 MG Thiamine HCl (Thiamine HCl) 100 mg DAILY PO 03/21/19 09:00 03/22/19 08:33 100 MG A/P 1-LE edema , bilat likely sec to volume overload due to CHF versus cirrhosis 2DEcho pending s/p diuretics in ED improved clinically 2-Seizure disorder Prior history is significant for seizure disorder and there is report patient was found in her feces at home Seizure precautions CT brain negative for acute process 3-ETOH use disorder Patient denies alcohol use for the past 4 months Alcohol withdrawal protocol B-12 level, thiamine, folate Replete electrolytes to keep potassium greater than 4, magnesium greater than 2 Follow 2-D echo findings for cardiomyopathy 4-COPD scheduled bronchodilator therapy and as needed monitoring of O2 sats with vitals to keep greater than 92% 5-Weakness and debility PT, OT evaluation for rehabilitation potential and discharge needs SW/CM consult DVT prophylaxis -Lovenox 40mg daily VS,Fishbone, I+O VS, Fishbone, I+O Vital Signs Date Time Temp Pulse Resp B/P (MAP) Pulse Ox O2 Delivery O2 Flow Rate FiO2 03/22/19 10:00 96.9 125 18 119/65 (83) 98 03/20/19 23:32 Room Air I&O- Last 24 Hours up to 6 AM 03/22/19 06:00 Intake Total 1130 ml Output Total 350 ml Balance 780 ml CARROL BABB MD Mar 22, 2019 16:26
[2019-03-23] VITALS (10 sets, daily range): BP systolic 99–126; BP diastolic 55–77
[2019-03-23] MEDS: IPRATROPIUM 0.5MG/ALBUTEROL 2.5MG INH SOL UD 3ML (DUONEB)(J7620) NEB SCH ×3 (07:28→20:00)
[2019-03-23] MEDS: FOLIC ACID 1 MG TAB PO SCH (08:19)
[2019-03-23] MEDS: ENOXAPARIN 40 MG/0.4 ML SYRINGE (J1650) SC SCH (08:19)
[2019-03-23] MEDS: THIAMINE 100 MG TAB PO SCH (08:19)
[2019-03-23 13:06] LABS: HEPATITIS A ANTIBODY IGM NEGATIVE (NEGATIVE); HEPATITIS B CORE ANTIBODY IGM NEGATIVE (NEGATIVE); HEPATITIS B SURFACE ANTIGEN NEGATIVE (NEGATIVE); HEPATITIS C VIRUS ABY INDEX 0.3 INDEX (<0.8)
[2019-03-23] MEDS: MULTIVITAMINS/MINERALS THERAP 1 TAB PO SCH (14:57)
[2019-03-23] MEDS ORDERED: LORazepam 2 MG TAB PO PRN (15:00)
--- NOTE | 2019-03-23 22:15 | IPNPDOC ---
Text Note Date of Service The patient was seen on 03/23/19. NOTE Pt was seen and examined at bedside. Remains clinically stable. No events overnight. PHE: GENERAL: pt is AAOx3 appears frail elderly lady HEENT: ASHLEY EOMI mucus membrane moist, atraumatic, normocephalic, icteric sclera, CARDIOVASCULAR: S1 S2 no murmur no JVD RESP: no wheezing no rales ABDOMEN: soft not distended not tender no ascites MS: no joint deformities NEURO: motor sensory intact PSYCH: no anxiety or agitation, appropriate mood and affect. Vital Signs Date Time Temp Pulse Resp B/P (MAP) Pulse Ox O2 Delivery O2 Flow Rate FiO2 03/22/19 10:00 96.9 125 18 119/65 (83) 98 03/22/19 08:33 115 126/74 (91) 130 124/79 (94) 139 122/77 (92) 03/22/19 08:33 130 124/79 03/22/19 06:00 86 102/59 03/22/19 06:00 97.1 91 18 97 03/22/19 06:00 86 102/59 (73) 94 98/60 (73) 104 109/63 (78) 03/22/19 02:00 98.1 95 18 109/57 (74) 96 03/21/19 22:00 72 120/86 03/21/19 22:00 98.2 71 16 120/86 (97) 99 03/21/19 18:00 98.5 102 18 120/99 (106) 98 03/21/19 14:00 99.1 110 20 144/55 (84) 95 Intake & Output 03/22/19 06:00 Intake Total 1130 ml Output Total 350 ml Balance 780 ml Microbiology 03/20/19 MRSA Screen - Final, Complete Staph.aureus Methicillin Resis Current Medications Medications (Trade) Dose Ordered Sig/Jerod Route PRN Reason Start Time Stop Time Status Last Admin Dose Admin Albuterol/ Ipratropium (Duoneb (Ipr 0.5mg/Alb 2.5mg)) 3 ml RTID NEB 03/20/19 20:00 03/22/19 07:49 3 ML Enoxaparin Sodium (Lovenox) 40 mg DAILY SC 03/21/19 09:00 03/22/19 08:33 40 MG Folic Acid (Folic Acid) 1 mg DAILY PO 03/21/19 09:00 03/22/19 08:33 1 MG Thiamine HCl (Thiamine HCl) 100 mg DAILY PO 03/21/19 09:00 03/22/19 08:33 100 MG A/P 1-LE edema , bilat likely sec to volume overload due to CHF versus cirrhosis 2DEcho pending s/p diuretics in ED improved clinically 2-Seizure disorder Prior history is significant for seizure disorder and there is report patient was found in her feces at home Seizure precautions CT brain negative for acute process 3-ETOH use disorder Patient denies alcohol use for the past 4 months Alcohol withdrawal protocol B-12 level, thiamine, folate Replete electrolytes to keep potassium greater than 4, magnesium greater than 2 Follow 2-D echo findings for cardiomyopathy 4-COPD scheduled bronchodilator therapy and as needed monitoring of O2 sats with vitals to keep greater than 92% 5-Weakness and debility PT, OT evaluation for rehabilitation potential and discharge needs SW/CM consult DVT prophylaxis -Lovenox 40mg daily VS,Fishbone, I+O VS, Fishbone, I+O Vital Signs Date Time Temp Pulse Resp B/P (MAP) Pulse Ox O2 Delivery O2 Flow Rate FiO2 03/23/19 22:00 98.0 86 18 114/59 (77) 97 03/20/19 23:32 Room Air I&O- Last 24 Hours up to 6 AM 03/23/19 06:00 Intake Total 550 ml Output Total 300 ml Balance 250 ml CARROL BABB MD Mar 23, 2019 22:15
[2019-03-24] VITALS (11 sets, daily range): BP systolic 101–129; BP diastolic 56–85
[2019-03-24] MEDS: IPRATROPIUM 0.5MG/ALBUTEROL 2.5MG INH SOL UD 3ML (DUONEB)(J7620) NEB SCH ×3 (07:44→18:14)
[2019-03-24] MEDS: MULTIVITAMINS/MINERALS THERAP 1 TAB PO SCH (08:57)
[2019-03-24] MEDS: ENOXAPARIN 40 MG/0.4 ML SYRINGE (J1650) SC SCH (08:57)
[2019-03-24] MEDS: THIAMINE 100 MG TAB PO SCH (08:57)
[2019-03-24] MEDS: FOLIC ACID 1 MG TAB PO SCH (08:57)
--- NOTE | 2019-03-24 11:21 | IPNPDOC ---
Date Seen The patient was seen on 03/24/19. Progress Note SUBJECTIVE: 66 Y female, history of ETOH abuse presents with general weakness and legs swelling CT of abdomen showed fatty liver with ascites Reviews of systems no fever no chills no MEYER no sob no chest pain no abdominal pain no diarrhea OBJECTIVE PHYSICAL EXAMINATION: VITAL SIGNS: Please see below. GENERAL: AA Ox3, not in acute distress HEENT: Atraumatic CARDIOVASCULAR: S 1 S2, regular, mild tachy, no murmur RESPIRATORY: clear, no rales no wheezing ABDOMINAL: soft, mild distended, non tenderness EXTREMITIES:+3 edema in legs NEUROLOGICAL: non focal PSYCHOLOGICAL: no acute psychosis LABORATORY DATA, IMAGING STUDIES, MICROBIOLOGY: Please see below. ASSESSMENT AND PLAN: Bilateral lower extremity swelling likely due to cirrhosis/low albumin -Bilateral lower extremity ultrasound negative for DVT -2-D echocardiogram normal will start IV lasix Seizure disorder -Prior history is significant for seizure disorder and there is report patient was found in her feces at home -Seizure precautions -CT brain negative for acute process Alcohol abuse -Patient denies alcohol use for the past 4 months -Alcohol withdrawal protocol she is not in withdrawal now and will use Benzo as needed Cirrhosis and ascites, likely related to ETOH abuse advised to quit drinking General weakness PT on board VS, I&O, 24H, Fishbone Vital Signs/I&O Vital Signs Date Time Temp Pulse Resp B/P (MAP) Pulse Ox O2 Delivery O2 Flow Rate FiO2 03/24/19 10:00 97.0 140 18 110/75 (87) 93 03/20/19 23:32 Room Air I&O- Last 24 Hours up to 6 AM 03/24/19 06:00 Intake Total 700 ml Output Total 0 ml Balance 700 ml Laboratory Data Microbiology Microbiology 03/20/19 MRSA Screen - Final, Complete Staph.aureus Methicillin Resis PARVIN GURROLA MD Mar 24, 2019 11:21
[2019-03-24] MEDS: FUROSEMIDE 40 MG/4 ML VIAL (J1940) IV SCH ×2 (11:37→17:30)
[2019-03-24] MEDS: PANTOPRAZOLE 40MG INJ (PROTONIX) (C9113) IV SCH (12:45)
[2019-03-24] MEDS ORDERED: METOPROLOL SUCC *XL* 25MG TAB (TopROL *XL*) PO ONE (22:45)
[2019-03-25] VITALS (7 sets, daily range): BP systolic 103–118; BP diastolic 49–90
[2019-03-25 06:24] LABS: BASO % 0.6 % (0.0-1.0); EOS # 0.1 10^3/uL (0.0-0.50); EOS % 2.2 % (0.0-3.0); HEMOGLOBIN 9.4 g/dl (12.0-15.5); LYMPH # 1.4 10^3/uL (1.5-4.5); MEAN CORPUSCULAR HEMOGLOBIN 33.6 pg (27.0-33.0); MEAN CORPUSCULAR HGB CONC 33.6 g/dl (32.0-36.5); MONO # 0.7 10^3/uL (0.0-0.8); MONO % 13.2 % (0.0-5.0); NEUTROPHILS # 2.9 10^3/uL (1.8-7.7); NEUTROPHILS % 56.6 % (36.0-66.0); PLATELET COUNT, AUTOMATED 141 10^3/uL (150-450); WHITE BLOOD COUNT 5.1 10^3/uL (4.0-10.0)
[2019-03-25 06:49] LABS: ALBUMIN 1.9 GM/DL (3.2-5.2); ALT/SGPT 20 U/L (12-78); BILIRUBIN,TOTAL 2.7 MG/DL (0.2-1.0); BLOOD UREA NITROGEN 4 MG/DL (7-18); CALCIUM LEVEL 7.6 MG/DL (8.8-10.2); CARBON DIOXIDE LEVEL 27 MEQ/L (21-32); CHLORIDE LEVEL 95 MEQ/L (98-107); CREATININE FOR GFR 0.58 MG/DL (0.55-1.30); GLOMERULAR FILTRATION RATE > 60.0 (>45); GLUCOSE, FASTING 97 MG/DL (70-100); POTASSIUM SERUM 3.3 MEQ/L (3.5-5.1); SODIUM LEVEL 129 MEQ/L (136-145); TOTAL PROTEIN 5.5 GM/DL (6.4-8.2)
[2019-03-25] MEDS: IPRATROPIUM 0.5MG/ALBUTEROL 2.5MG INH SOL UD 3ML (DUONEB)(J7620) NEB SCH ×3 (07:24→20:00)
[2019-03-25] MEDS ORDERED: POTASSIUM CHLORIDE 10 MEQ SR TABLET PO ONE (08:00)
[2019-03-25] MEDS: MULTIVITAMINS/MINERALS THERAP 1 TAB PO SCH (08:14)
[2019-03-25] MEDS: FOLIC ACID 1 MG TAB PO SCH (08:14)
[2019-03-25] MEDS: THIAMINE 100 MG TAB PO SCH (08:14)
[2019-03-25] MEDS: FUROSEMIDE 40 MG/4 ML VIAL (J1940) IV SCH (08:15)
[2019-03-25] MEDS: METOPROLOL SUCC *XL* 25MG TAB (TopROL *XL*) PO SCH (08:15)
[2019-03-25] MEDS: ENOXAPARIN 40 MG/0.4 ML SYRINGE (J1650) SC SCH (08:16)
[2019-03-25] MEDS: PANTOPRAZOLE 40MG INJ (PROTONIX) (C9113) IV SCH (12:07)
--- NOTE | 2019-03-25 16:25 | IPNPDOC ---
Date Seen The patient was seen on 03/25/19. Progress Note SUBJECTIVE: 66 Y female, history of ETOH abuse presents with general weakness and legs swelling CT of abdomen showed fatty liver with ascites she feels better no events overnight Reviews of systems no fever no chills no MEYER no sob no chest pain no abdominal pain no diarrhea OBJECTIVE PHYSICAL EXAMINATION: VITAL SIGNS: Please see below. GENERAL: AA Ox3, not in acute distress HEENT: Atraumatic CARDIOVASCULAR: S 1 S2, regular, mild tachy, no murmur RESPIRATORY: clear, no rales no wheezing ABDOMINAL: soft, mild distended, non tenderness EXTREMITIES: +1-2 edema in legs NEUROLOGICAL: non focal PSYCHOLOGICAL: no acute psychosis LABORATORY DATA, IMAGING STUDIES, MICROBIOLOGY: Please see below. ASSESSMENT AND PLAN: Bilateral lower extremity swelling likely due to cirrhosis/low albumin -Bilateral lower extremity ultrasound negative for DVT -2-D echocardiogram normal improving and will change to oral lasix and Aldactone Hyponatremia, mild and will follow Hypokalemia, will supplement Seizure disorder -Prior history is significant for seizure disorder and there is report patient was found in her feces at home -Seizure precautions -CT brain negative for acute process Alcohol abuse -Patient denies alcohol use for the past 4 months -Alcohol withdrawal protocol she is not in withdrawal now and will use Benzo as needed Cirrhosis and ascites, likely related to ETOH abuse advised to quit drinking General weakness PT on board VS, I&O, 24H, Fishbone Vital Signs/I&O Vital Signs Date Time Temp Pulse Resp B/P (MAP) Pulse Ox O2 Delivery O2 Flow Rate FiO2 03/25/19 14:00 97.4 90 20 109/49 (69) 95 03/20/19 23:32 Room Air I&O- Last 24 Hours up to 6 AM 03/25/19 06:00 Intake Total 1010 ml Output Total 250 ml Balance 760 ml Laboratory Data 24H LABS Laboratory Tests 2 03/25/19 05:56: Immature Granulocyte % (Auto) 0.4, White Blood Count 5.1, Red Blood Count 2.80L, Hemoglobin 9.4L, Hematocrit 28.0L, Mean Corpuscular Volume 100.0H, Mean Corpuscular Hemoglobin 33.6H, Mean Corpuscular Hemoglobin Concent 33.6, Red Cell Distribution Width 16.1H, Platelet Count 141L, Neutrophils (%) (Auto) 56.6, Lymphocytes (%) (Auto) 27.0, Monocytes (%) (Auto) 13.2H, Eosinophils (%) (Auto) 2.2, Basophils (%) (Auto) 0.6, Neutrophils # (Auto) 2.9, Lymphocytes # (Auto) 1.4L, Monocytes # (Auto) 0.7, Eosinophils # (Auto) 0.1, Basophils # (Auto) 0.0, Nucleated Red Blood Cells % (auto) 0.0, Anion Gap 7L, Glomerular Filtration Rate > 60.0, Blood Urea Nitrogen 4L, Creatinine 0.58, Sodium Level 129L, Potassium Level 3.3L, Chloride Level 95L, Carbon Dioxide Level 27, Calcium Level 7.6L, Aspartate Amino Transf (AST/SGOT) 42H, Alanine Aminotransferase (ALT/SGPT) 20, Alkaline Phosphatase 148H, Total Bilirubin 2.7H, Total Protein 5.5L, Albumin 1.9 L, Albumin/Globulin Ratio 0.53L CBC/BMP Laboratory Tests 03/25/19 05:56 Red Blood Count 2.80 L, Mean Corpuscular Volume 100.0 H, Mean Corpuscular Hemoglobin 33.6 H, Mean Corpuscular Hemoglobin Concent 33.6, Red Cell Distribution Width 16.1 H, Neutrophils (%) (Auto) 56.6, Lymphocytes (%) (Auto) 27.0, Monocytes (%) (Auto) 13.2 H, Eosinophils (%) (Auto) 2.2, Basophils (%) (Auto) 0.6, Neutrophils # (Auto) 2.9, Lymphocytes # (Auto) 1.4 L, Monocytes # (Auto) 0.7, Eosinophils # (Auto) 0.1, Basophils # (Auto) 0.0, Calcium Level 7.6 L, Aspartate Amino Transf (AST/SGOT) 42 H, Alanine Aminotransferase (ALT/SGPT) 20, Alkaline Phosphatase 148 H, Total Bilirubin 2.7 H, Total Protein 5.5 L, Albumin 1.9 L Microbiology Microbiology 03/20/19 MRSA Screen - Final, Complete Staph.aureus Methicillin Resis PARVIN GURROLA MD Mar 25, 2019 16:25
[2019-03-25] MEDS: SPIRONOLACTONE 25 MG TAB PO SCH (16:54)
[2019-03-26 02:00] VITALS: BP 120/72
[2019-03-26 06:00] VITALS: BP 122/63
[2019-03-26 06:50] LABS: BLOOD UREA NITROGEN 4 MG/DL (7-18); CALCIUM LEVEL 7.5 MG/DL (8.8-10.2); CARBON DIOXIDE LEVEL 29 MEQ/L (21-32); CHLORIDE LEVEL 97 MEQ/L (98-107); CREATININE FOR GFR 0.57 MG/DL (0.55-1.30); GLOMERULAR FILTRATION RATE > 60.0 (>45); GLUCOSE, FASTING 78 MG/DL (70-100); SODIUM LEVEL 131 MEQ/L (136-145)
[2019-03-26] MEDS: IPRATROPIUM 0.5MG/ALBUTEROL 2.5MG INH SOL UD 3ML (DUONEB)(J7620) NEB SCH ×2 (08:11→11:50)
[2019-03-26] MEDS: THIAMINE 100 MG TAB PO SCH (08:25)
[2019-03-26] MEDS: FOLIC ACID 1 MG TAB PO SCH (08:25)
[2019-03-26] MEDS: SPIRONOLACTONE 25 MG TAB PO SCH (08:25)
[2019-03-26] MEDS: ENOXAPARIN 40 MG/0.4 ML SYRINGE (J1650) SC SCH (08:26)
[2019-03-26] MEDS: METOPROLOL SUCC *XL* 25MG TAB (TopROL *XL*) PO SCH (08:26)
[2019-03-26] MEDS: MULTIVITAMINS/MINERALS THERAP 1 TAB PO SCH (08:26)
[2019-03-26] MEDS ORDERED: FUROSEMIDE 40 MG TAB PO SCH (09:00)
[2019-03-26] MEDS ORDERED: FURO40TA2 PO (10:58)
[2019-03-26] MEDS ORDERED: ALDA25TA2 PO (10:58)
--- NOTE | 2019-03-27 18:19 | DS.PDOC ---
Discharge Summary General Date of Admission Mar 24, 2019 at 14:09 Date of Discharge 03/26/19 Primary Care Physician: CHRISTOPHER ASENCIO NP Attending Physician: PARVIN GURROLA MD Discharge Summary PROCEDURES PERFORMED DURING STAY: [None]. ADMITTING DIAGNOSES: 1. legs swelling 2. ETOH abuse DISCHARGE DIAGNOSES: 1. ETOH abuse 2. alcoholic cirrhosis with ascites 3. Hypokalemia/hyponatremia 4. Hypertension. 5. COPD 6. Seizure disorder. COMPLICATIONS/CHIEF COMPLAINT: Debility. HISTORY OF PRESENT ILLNESS: Patient is a 68-year-old female, presenting to the emergency room at the behest of her friend who called EMS services due to weakness and lower extremity swelling. Patient has a past medical history significant for alcohol abuse, seizure disorder, COPD, hypertension. Patient was unable to provide a coherent history. However, complains of increased weakness to bilateral lower extremity and inability to ambulate for about 4 days. A friend who was concerned, called EMS services and patient was brought to the emergency room. Lasix was administered in the emergency room for lower extremity swelling and it is reported that patient was able to ambulate about 10 feet, but had to sit down due to severe weakness. Ultrasound of bilateral lower extremity was negative for DVT, laboratory data was remarkable for bilirubin of 2.7, alkaline phosphatase of 185, proBNP of 1582, TSH of 5.5-0. Chest x-ray completed for dyspnea was negative for acute cardiopulmonary process. Venous gas was within normal limits. HOSPITAL COURSE: After admission, she was treated supportively. she was ruled out DVT; she was found to have cirrhosis ascites likely due to ETOH abuse; she was treated with IV lasix and then switched to oral lasix and aldactone; she was evaluated with PT and she did well. she was discharge home on 03/26 and she is advised to quit drinking and will follow lymphedema clinic. DISCHARGE MEDICATIONS: Please see below. ALLERGIES: Please see below. PHYSICAL EXAMINATION ON DISCHARGE: VITAL SIGNS: Please see below. GENERAL: AA Ox3 HEENT: atraumatic NECK: No JVD CARDIOVASCULAR EXAMINATION: S1 S2 regular RESPIRATORY EXAMINATION: clear ABDOMINAL EXAMINATION: soft bs+ no tenderness EXTREMITIES: trace edema SKIN: no rash NEUROLOGICAL EXAMINATION: non focal PSYCHIATRIC EXAMINATION: no acute psychosis LABORATORY DATA: Please see below. IMAGING: legs doppler negative for DVT Abdominal CT showed cirrhosis with ascites echo normal PROGNOSIS: fair ACTIVITY: [As tolerated]. DIET: low salt diet DISPOSITION: Home, Self-Care. ITEMS TO FOLLOWUP ON ON OUTPATIENT: 1. PCP in 1 week 2. Lymphedema clinic in 1-2 weeks DISCHARGE CONDITION: [Stable]. TIME SPENT ON DISCHARGE: Greater than 35 minutes. Vital Signs/I&Os Vital Signs Date Time Temp Pulse Resp B/P (MAP) Pulse Ox O2 Delivery O2 Flow Rate FiO2 03/26/19 06:00 96.3 86 18 122/63 (82) 93 I&O- Last 24 Hours up to 6 AM 03/27/19 06:00 Intake Total 240 ml Balance 240 ml Laboratory Data Labs 24H Laboratory Tests 2 03/27/19 14:05: Lab Scanned Report Transfusion Record Microbiology Microbiology 03/20/19 MRSA Screen - Final, Complete Staph.aureus Methicillin Resis Discharge Medications Scheduled Calcium Carbonate (Calcium) 500 Mg Tab.chew, 500 MG PO DAILY, (Reported) Ferrous Sulfate (Iron) 325 Mg Tablet, 325 MG PO DAILY, (Reported) Furosemide (Furosemide) 40 Mg Tablet, 40 MG PO DAILY Magnesium Oxide (Magnesium Oxide) 400 Mg Tablet, 400 MG PO DAILY, (Reported) Metoprolol Succinate (Metoprolol Succinate) 25 Mg Tab, 25 MG PO DAILY, (Reported) Multivitamin (Multivitamins) 1 Each Capsule, 1 CAP PO DAILY, (Reported) Pantoprazole Sodium (Protonix) 40 Mg Tab, 40 MG PO BID, (Reported) Spironolactone (Aldactone) 25 Mg Tablet, 25 MG PO QAM Zinc (Zinc) 50 Mg Tablet, 50 MG PO DAILY, (Reported) Allergies Coded Allergies: No Known Allergies (Verified , 01/09/11) PARVIN GURROLA MD Mar 27, 2019 18:19
[2019-04-06] MEDS ORDERED: SPIR-10 PO (15:31)
[2019-04-06] MEDS ORDERED: METO25TA4 PO (15:31)
[2019-04-06] MEDS ORDERED: FURO40TA2 PO (15:31)
[2019-04-13] MEDS ORDERED: FOLI1TAB11 PO (10:29)
[2019-04-13] MEDS ORDERED: LEVO50TA5 PO (10:29)
[2019-04-13] MEDS ORDERED: THIA100TA PO (10:29)
[2019-04-13] MEDS ORDERED: ALDA50TA2 PO (10:29)
[2019-04-13] MEDS ORDERED: MAG400TA PO (10:29)
== END 2019-03-26 15:19 | disposition home or self-care (01) | DRG 433 ==
LOC: M ED 16:53 → EDBD 16:53 → M ED INP 19:38 → EEVIPCON 19:38 → M MSPAV 23:41 → OBSVTOIN 03-24 14:09
PROVIDERS: ADMIT Family Medicine; ATTEND Hospitalist
DX: K70.31 Alcoholic cirrhosis of liver with ascites (principal); E87.1 Hypo-osmolality and hyponatremia; F10.10 Alcohol abuse, uncomplicated; I10 Essential (primary) hypertension; E87.6 Hypokalemia; M79.89 Other specified soft tissue disorders; J44.9 Chronic obstructive pulmonary disease, unspecified; R00.0 Tachycardia, unspecified; G40.909 Epilepsy, unspecified, not intractable, without status epilepticus; F17.200 Nicotine dependence, unspecified, uncomplicated; R53.1 Weakness; R53.81 Other malaise; Z79.899 Other long term (current) drug therapy

== ENCOUNTER → 2019-04-21 | Outpatient (REF) | payer MEDICARE ==
[~2019-04-21] MED LIST changes: +ALDA25TA2 PO; +ALDA50TA2 PO; +APAP325T4 PO; +CALC500T68 PO; +FOLI1TAB11 PO; +FURO40TA2 PO; +IRON65TA2 PO; +LEVO50TA5 PO; +MAG400TA PO; +MAGN400T2 PO; +METO25TA4 PO; +MULTCAP PO; +SPIR-10 PO; +THIA100TA PO; +ZINC1TAB2 PO
[2019-04-21 13:58] LABS: BASO # 0.1 10^3/uL (0.0-0.2); BASO % 0.9 % (0.0-1.0); EOS % 0.2 % (0.0-3.0); HEMATOCRIT 31.6 % (36.0-47.0); HEMOGLOBIN 10.3 g/dl (12.0-15.5); LYMPH # 2.1 10^3/uL (1.5-4.5); LYMPH % 24.6 % (24.0-44.0); MEAN CORPUSCULAR HEMOGLOBIN 31.3 pg (27.0-33.0); MEAN CORPUSCULAR HGB CONC 32.6 g/dl (32.0-36.5); MONO # 0.7 10^3/uL (0.0-0.8); MONO % 8.3 % (0.0-5.0); NEUTROPHILS # 5.6 10^3/uL (1.8-7.7); NEUTROPHILS % 65.7 % (36.0-66.0); PLATELET COUNT, AUTOMATED 268 10^3/uL (150-450); RED BLOOD COUNT 3.29 10^6/uL (4.00-5.40); WHITE BLOOD COUNT 8.6 10^3/uL (4.0-10.0)
[2019-04-21 14:37] LABS: ALBUMIN 1.8 GM/DL (3.2-5.2); ALT/SGPT 15 U/L (12-78); BILIRUBIN,TOTAL 1.2 MG/DL (0.2-1.0); BLOOD UREA NITROGEN 7 MG/DL (7-18); CARBON DIOXIDE LEVEL 25 MEQ/L (21-32); CHLORIDE LEVEL 96 MEQ/L (98-107); CREATININE FOR GFR 0.82 MG/DL (0.55-1.30); FREE T4 1.71 NG/DL (0.76-1.46); GLOMERULAR FILTRATION RATE > 60.0 (>45); GLUCOSE, FASTING 97 MG/DL (70-100); MAGNESIUM LEVEL 1.9 MG/DL (1.8-2.4); POTASSIUM SERUM 5.2 MEQ/L (3.5-5.1); SODIUM LEVEL 128 MEQ/L (136-145); TOTAL PROTEIN 5.9 GM/DL (6.4-8.2)
== END ==
LOC: M SFHCPLAZ 11:22
PROVIDERS: ATTEND Nurse Practitioner Family
DX: E03.9 Hypothyroidism, unspecified (principal); D63.8 Anemia in other chronic diseases classified elsewhere; I10 Essential (primary) hypertension; E83.42 Hypomagnesemia

== ENCOUNTER → 2019-04-23 | Outpatient (REF) | payer MEDICARE ==
[2019-04-23 18:00] LABS: BLOOD UREA NITROGEN 8 MG/DL (7-18); CALCIUM LEVEL 7.1 MG/DL (8.8-10.2); CARBON DIOXIDE LEVEL 24 MEQ/L (21-32); CHLORIDE LEVEL 92 MEQ/L (98-107); CREATININE FOR GFR 0.84 MG/DL (0.55-1.30); GLOMERULAR FILTRATION RATE > 60.0 (>45); GLUCOSE, FASTING 91 MG/DL (70-100); POTASSIUM SERUM 5.2 MEQ/L (3.5-5.1); SODIUM LEVEL 125 MEQ/L (136-145)
== END ==
LOC: M SHH 16:00
PROVIDERS: ATTEND Nurse Practitioner Family
DX: E87.5 Hyperkalemia (principal)

== ENCOUNTER → 2019-04-24 | Outpatient (REF) | LOC: M LAB LCGH 23:08 | DX: Z00.00 Encounter for general adult medical examination without abnormal findings (principal) ==

== ENCOUNTER 2019-05-08 16:02 | Emergency (ER) | payer MEDICARE, MEDICAID ==
[~2019-05-08] VITALS: Ht 162.6 cm; Wt 59.1 kg
[2019-05-08 18:15] LABS: CK-MB VALUE MASS 1.3 NG/ML (<3.6); CPK CREATINE PHOSPHOKINASE 29 U/L (26-192); MB/CK RELATIVE INDEX 4.48 (< OR =4); TROPONIN I < 0.02 NG/ML (< 0.10)
--- NOTE | 2019-05-08 18:28 | REP ---
Portable chest: Comparisons are the portable chest dated 04/06/2099, PA and lateral chest of 06/10/20. The left pleural effusion has decreased in size from 04/12, 11/05/2018. I suspect there is a small left pleural effusion. Lung goodman otherwise clear. Cardiac size is normal. The [place], mediastinum, skeletal structures are unchanged. I suspect an old fracture of the right humeral head/neck. Impression: Left pleural effusion that has decreased in size. Small right pleural effusion. Electronically Signed by Haider Lozano MD 05/08/2019 06:20 P
[2019-05-08 19:15] VITALS: BP 92/61
--- NOTE | 2019-05-08 23:54 | ECGEPIP ---
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
== END 2019-05-08 19:52 | disposition home or self-care (01) ==
LOC: EDBD 16:02 → M ED 16:02
DX: K74.60 Unspecified cirrhosis of liver (principal); J90 Pleural effusion, not elsewhere classified; I10 Essential (primary) hypertension; Z72.0 Tobacco use; Z79.899 Other long term (current) drug therapy

== ENCOUNTER → 2019-05-08 | Outpatient (REF) | payer MEDICARE ==
[2019-05-08 12:00] LABS: BASO # 0.1 10^3/uL (0.0-0.2); BASO % 0.7 % (0.0-1.0); EOS % 0.1 % (0.0-3.0); HEMATOCRIT 35.6 % (36.0-47.0); LYMPH # 1.5 10^3/uL (1.5-4.5); LYMPH % 20.9 % (24.0-44.0); MEAN CORPUSCULAR HEMOGLOBIN 30.5 pg (27.0-33.0); MEAN CORPUSCULAR HGB CONC 33.7 g/dl (32.0-36.5); MEAN CORPUSCULAR VOLUME 90.6 fl (80.0-96.0); MONO # 0.6 10^3/uL (0.0-0.8); MONO % 8.9 % (0.0-5.0); NEUTROPHILS # 4.8 10^3/uL (1.8-7.7); NEUTROPHILS % 68.7 % (36.0-66.0); PLATELET COUNT, AUTOMATED 281 10^3/uL (150-450); RED BLOOD COUNT 3.93 10^6/uL (4.00-5.40)
[2019-05-08 12:15] LABS: INR 1.28; PARTIAL THROMBOPLASTIN TIME 32.2 SECONDS (25.0-38.4); PROTHROMBIN TIME 15.7 SECONDS (11.8-14.0)
[2019-05-08 12:36] LABS: ALBUMIN 1.7 GM/DL (3.2-5.2); CALCIUM LEVEL 7.8 MG/DL (8.8-10.2); CREATININE FOR GFR 1.25 MG/DL (0.55-1.30); GLOMERULAR FILTRATION RATE 45.6 (>45)
== END ==
LOC: M SFHCPLAZ 10:54
PROVIDERS: ATTEND Nurse Practitioner Family
DX: K70.31 Alcoholic cirrhosis of liver with ascites (principal)

== ENCOUNTER 2019-05-18 18:01 | Inpatient (IN) | payer MEDICARE, MEDICAID ==
[~2019-05-18] VITALS: Ht 162.6 cm; Wt 53.5 kg
[2019-05-18 20:08] LABS: BASO # 0.1 10^3/uL (0.0-0.2); BASO % 0.7 % (0.0-1.0); HEMATOCRIT 34.2 % (36.0-47.0); HEMOGLOBIN 11.7 g/dl (12.0-15.5); LYMPH # 1.5 10^3/uL (1.5-5.0); MEAN CORPUSCULAR HGB CONC 34.2 g/dl (32.0-36.5); MEAN CORPUSCULAR VOLUME 90.5 fl (80.0-96.0); MONO # 0.8 10^3/uL (0.0-0.8); MONO % 9.3 % (0.0-5.0); NEUTROPHILS # 6.7 10^3/uL (1.5-8.5); NEUTROPHILS % 73.3 % (36.0-66.0); PLATELET COUNT, AUTOMATED 263 10^3/uL (150-450); RED BLOOD COUNT 3.78 10^6/uL (4.00-5.40); WHITE BLOOD COUNT 9.1 10^3/uL (4.0-10.0)
[2019-05-18 20:19] LABS: INR 1.31
[2019-05-18 20:20] LABS: PARTIAL THROMBOPLASTIN TIME 26.4 SECONDS (25.0-38.4)
[2019-05-18 20:47] LABS: ALBUMIN 1.4 GM/DL (3.2-5.2); ALT/SGPT 14 U/L (12-78); AMYLASE 19 U/L (25-115); BILIRUBIN,DIRECT 0.7 MG/DL (0.0-0.2); BILIRUBIN,TOTAL 0.9 MG/DL (0.2-1.0); BLOOD UREA NITROGEN 18 MG/DL (7-18); CALCIUM LEVEL 7.4 MG/DL (8.8-10.2); CARBON DIOXIDE LEVEL 26 MEQ/L (21-32); CHLORIDE LEVEL 95 MEQ/L (98-107); CK-MB VALUE MASS 1.5 NG/ML (<3.6); CPK CREATINE PHOSPHOKINASE 31 U/L (26-192); CREATININE FOR GFR 1.27 MG/DL (0.55-1.30); GLOMERULAR FILTRATION RATE 44.8 (>45); GLUCOSE, FASTING 80 MG/DL (70-100); LIPASE 57 U/L (73-393); MB/CK RELATIVE INDEX 4.84 (< OR =4); POTASSIUM SERUM 6.4 MEQ/L (3.5-5.1); SODIUM LEVEL 127 MEQ/L (136-145); TOTAL PROTEIN 5.6 GM/DL (6.4-8.2); TROPONIN I < 0.02 NG/ML (< 0.10)
[2019-05-18] MEDS ORDERED: NS 1,000 ML IV ONE (21:00)
[2019-05-19] VITALS (12 sets, daily range): BP systolic 103–140; BP diastolic 55–67
--- NOTE | 2019-05-19 00:51 | ECGEPIP ---
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
[2019-05-19] MEDS ORDERED: FUROSEMIDE injection 250 MG in D5W 225 ML IV SCH ×2 (01:30→01:38)
[2019-05-19] MEDS ORDERED: SYNT50TA PO (02:07)
[2019-05-19] MEDS ORDERED: FOLI1TAB11 PO (02:07)
[2019-05-19] MEDS ORDERED: CITA20TA7 PO (02:07)
[2019-05-19] MEDS ORDERED: SPIR50TA4 PO (02:07)
[2019-05-19] MEDS ORDERED: THIA100T7 PO (02:07)
[2019-05-19] MEDS ORDERED: ATOR1TAB19 PO (02:07)
[2019-05-19] MEDS ORDERED: PROAAER10 INH (02:09)
[2019-05-19] MEDS: FUROSEMIDE injection 250 MG in D5W 225 ML IV SCH (02:17)
--- NOTE | 2019-05-19 02:20 | HPEPDOC ---
General Date of Admission May 19, 2019 at 01:16 Date of Service: May 19, 2019 Chief Complaint The patient is a 68-year-old female admitted with a reason for visit of Cirrhosis. Source: Patient, RN/MD, Old records Exam Limitations: No limitations Severity: Severe History of Present Illness 68 year old female with alcoholic cirrhosis, chronic pancreatitis, gastrojejunostomy due to failed Wipples's procedure in 2013, chronic diarrhea, severe malnutrition , severe hypoalbuminemia, chronic hyponatremia, failure to thrive, smoker, no alcohol intake for 5 months called the EMS today for weakness and unable to get out of the couch. EMS found her to be sitting in couch soiled in feces. She has not been out of the couch for 2 days. She has a friend Matilda who carries her to the [employer] potty and carries her back to the sofa but her fr iend has been in out of town for 2 days and so she has been unable to get out of the couch. Last week her sister visited her every day and helped her but over the holiday week end she was not here too. Patient needs help with all her ADLS. Shs has not been able to use the walker for 2 to 3 weeks. She also complains of early satiety and diarrhea 5 to 6 times a day. There is brown liquid stools. She complains of severe tightness in her abdomen and distension due to which she unable to eat more than 2 bites at a time after that she feels extremely full. She also complains of severe bilateral knee pain, dull aching 8/10 in intensity so cannot bear weight, no radiation. The knees are also very swollen. In the ED patient is found to have severe generalized anasarca with severe hypalbuminemia, hyponatremia, hyperkalemia, SEVERE Malnutrition, failure to thrive and unable to do her ADLS , unable to ambulate. Home Medications Scheduled Atorvastatin Calcium (Atorvastatin Calcium) 10 Mg Tablet, 10 MG PO QHS, (Reported) Calcium Carbonate (Calcium) 500 Mg Tab.chew, 500 MG PO DAILY, (Reported) Citalopram Hydrobromide (Citalopram HBr) 20 Mg Tablet, 20 MG PO DAILY, (Reported) Ferrous Sulfate (Iron) 325 Mg Tablet, 325 MG PO DAILY, (Reported) Folic Acid (Folic Acid) 1 Mg Tablet, 1 MG PO QHS, (Reported) Furosemide (Furosemide) 40 Mg Tablet, 40 MG PO DAILY, (Reported) Levothyroxine Sodium (Synthroid) 50 Mcg Tablet, 50 MCG PO DAILY, (Reported) Magnesium Oxide (Magnesium Oxide) 400 Mg Tablet, 800 MG PO BID, (Reported) Metoprolol Tartrate (Metoprolol Tartrate) 25 Mg Tablet, 25 MG PO QHS, (Reported) Pantoprazole Sodium (Protonix) 40 Mg Tab, 40 MG PO DAILY, (Reported) Spironolactone (Spironolactone) 50 Mg Tablet, 50 MG PO BID, (Reported) Thiamine HCl (Thiamine HCl) 100 Mg Tablet, 100 MG PO DAILY, (Reported) Zinc (Zinc) 50 Mg Tablet, 50 MG PO DAILY, (Reported) Scheduled PRN Albuterol Sulfate (Proair Hfa) 8.5 Gm Hfa.aer.ad, 2 PUFF INH Q4H PRN for SHORTNESS OF BREATH, (Reported) Allergies Coded Allergies: No Known Allergies (Verified , 05/08/19) Past Medical History Medical History ALCOHOLIC CIRRHOSIS OF LIVER: LIVER BIOPSY IN 2013 AT [facility] CIRRHOSIS SEVERE PROTEIN CALORIE MALNUTRITION CHRONIC HYPONATREMIA CHRONIC DIARRHEA MDD WITHOUT PSYCHOTIC FEATURES H/O HTN CHRONIC PANCREATITIS ASTHMA/ALLERGIC RHINITIS IMPAIRED FASTING GLUCOSE TOBACCO DEPENDENCE CHRONIC INTERSTITIAL LUNG DISEASE OSTEOPOROSIS, SENILE ETOH ABUSE - SAYS HAS NOT HAD A DRINK IN 5 MONTHS 05/2015 ACUTE GI BLOOD LOSS ANEMIA - DUODENAL MASS BX Duodenal mucosa showing mild to moderate patchy villous blunting and Abdullahi gland hyperplasia. No features of celiac disease are noted. Moderate chronic duodenitis is noted. Also had Duodenal Bx in 2013 at [facility] chronic inflammation with predominance of eosinophils no malignancy. SEVERE PHYSICAL DECONDITIONING H/O SEIZURE DISORDER FAILURE TO THRIVE HYPOTHYROID Surgical History R EYE CATARACT 2004 CHOLECYSTECTOMY - [facility] 03/2012 SURGERY FOR PANCREAS - ATTEMPTED WHIPPLE PROCEDURE, WAS CONVERTED INTRAOPERATIVELY TO A GJ BYPASS B/C OF INTENSE SCARRING - [facility] 12/25/2013 COLONOSCOPY W/ POLYP AND BX, EGD W/ BLEEDING AND MASS - [facility] 05-24-15 Family History She was unsure. She knows her mother of pneumonia. She believes her father did as well. Social History * Smoker: current smoker Alcohol: sober (5 months) Drugs: denies A-FIB/CHADSVASC A-FIB History Current/History of A-Fib/PAF?: No Review of Systems Constitutional: Reports: Weakness, Fatigue Eyes: Denies: Pain, Vision change ENT: Denies: Head Aches, Ear Pain, Dysphagia Skin: Denies: Rash, Lesions, Breakdown Pulmonary: Reports: Dyspnea, Cough Cardiovascular: Reports: Edema; Denies: Chest Pain, Palpitations, Lt Headedness Gastrointestinal: Reports: Diarrhea; Denies: Nausea, Vomiting, Abdominal Pain, Melena, Hematochezia Genitourinary: Denies: Dysuria, Frequency, Incontinence, Retention Hematologic: Denies: Bruising, Bleeding Excessively Musculoskeletal: Reports: Leg Pain, Joint Pain Psych: Reports: Depression Physical Examination General Exam: Positive: Alert, Cooperative, Mild Distress Eye Exam: Positive: PERRLA, Conjunctiva & lids normal, EOMI; Negative: Sclera icteric ENT Exam: Positive: Atraumatic, Mucous membr. moist/pink, Pharynx Normal Neck Exam: Positive: Supple, JVD; Negative: thyromegaly Chest Exam: Positive: Rhonchi, Wheezing, Diminished (at aldo bases) Heart Exam: Positive: Rate Normal, Regular Rhythm, Normal S1, Normal S2; Negative: Murmurs, Rubs Abdomen Exam: Positive: Normal bowel sounds, Soft, Other (severe parietal edema) Extremity Exam: Positive: Edema, Tenderness, Swelling; Negative: Clubbing, Cyanosis Vital Signs Vital Signs Date Time Temp Pulse Resp B/P (MAP) Pulse Ox O2 Delivery O2 Flow Rate FiO2 05/18/19 23:45 93 106/58 (74) 93 05/18/19 22:15 16 05/18/19 18:31 97.6 Room Air Laboratory Data Labs 24H Laboratory Tests 2 05/18/19 19:54: Immature Granulocyte % (Auto) 0.7, White Blood Count 9.1, Red Blood Count 3.78L, Hemoglobin 11.7L, Hematocrit 34.2L, Mean Corpuscular Volume 90.5, Mean Corpuscular Hemoglobin 31.0, Mean Corpuscular Hemoglobin Concent 34.2, Red Cell Distribution Width 15.6H, Platelet Count 263, Neutrophils (%) (Auto) 73.3H, Lymphocytes (%) (Auto) 16.0L, Monocytes (%) (Auto) 9.3H, Eosinophils (%) (Auto) 0.0, Basophils (%) (Auto) 0.7, Neutrophils # (Auto) 6.7, Lymphocytes # (Auto) 1.5, Monocytes # (Auto) 0.8, Eosinophils # (Auto) 0.0, Basophils # (Auto) 0.1, Nucleated Red Blood Cells % (auto) 0.0, Prothrombin Time 16.0H, Prothromb Time International Ratio 1.31, Activated Partial Thromboplast Time 26.4, Anion Gap 6L, Glomerular Filtration Rate 44.8L, Calcium Level 7.4L, Aspartate Amino Transf (AST/SGOT) 26, Alanine Aminotransferase (ALT/SGPT) 14, Alkaline Phosphatase 123H, Total Bilirubin 0.9, Direct Bilirubin 0.7H, Total Creatine Kinase 31, Creatine Kinase MB 1.5, Creatine Kinase MB Relative Index 4.84H, Troponin I < 0.02, Total Protein 5.6L, Albumin 1.4L, Albumin/Globulin Ratio 0.33L, Amylase Level 19L, Lipase 57L 05/18/19 19:55: Lactic Acid Level 1.6 05/18/19 21:05: Urine Color MARÍA, Urine Appearance CLOUDYH, Urine pH 5.0, Urine Specific Angela 1.016, Urine Protein NEGATIVE, Urine Glucose (UA) NEGATIVE, Urine Ketones TRACEH, Urine Blood NEGATIVE, Urine Nitrite NEGATIVE, Urine Bilirubin NEGATIVE, Urine Urobilinogen 0.2, Urine Leukocyte Esterase TRACEH, Urine WBC (Auto) 12H, Urine RBC (Auto) 1, Urine Hyaline Casts (Auto) 8, Urine Bacteria (Auto) NEGATIVE, Urine Squamous Epithelial Cells 21, Urine Amorphous Sediment SMALLH, Urine Mucus (Auto) SMALL, Urine Sperm (Auto) CBC/BMP Laboratory Tests 05/18/19 19:54 Red Blood Count 3.78 L, Mean Corpuscular Volume 90.5, Mean Corpuscular Hemoglobin 31.0, Mean Corpuscular Hemoglobin Concent 34.2, Red Cell Distribution Width 15.6 H, Neutrophils (%) (Auto) 73.3 H, Lymphocytes (%) (Auto) 16.0 L, Monocytes (%) (Auto) 9.3 H, Eosinophils (%) (Auto) 0.0, Basophils (%) (Auto) 0.7, Neutrophils # (Auto) 6.7, Lymphocytes # (Auto) 1.5, Monocytes # (Auto) 0.8, Eosinophils # (Auto) 0.0, Basophils # (Auto) 0.1 Microbiology Microbiology 05/18/19 Blood Culture, Received Pending 05/18/19 Blood Culture, Received Pending 05/18/19 Urine Culture, Received Pending Assessment/Plan 68 year old female with alcoholic cirrhosis, chronic pancreatitis, gastrojejunostomy due to failed Wipples's procedure in 2013, chronic diarrhea, severe malnutrition , severe hypoalbuminemia, chronic hyponatremia, failure to thrive, smoker, no alcohol intake for 5 months called the EMS today for weakness and unable to get out of the couch. EMS found her to be sitting in couch soiled in feces. She has not been out of the couch for 2 days. In the ED patient is found to have severe generalized anasarca with severe hypalbuminemia, hyponatremia, hyperkalemia, SEVERE Malnutrition, failure to thrive and unable to do her ADLS , unable to ambulate. Anasarca Due to severe malnutrition and severe hypoalbuminemia this is due to cirrhosis of liver and chronic pancreatitis with chronic diarrhea causing hypoalbuminemia. will give albumin and lasix infusion to mobilize the fluids Lora for patient comfort and measurement of intake and output. Hyperkalemia probably due to spironolactone use will hold for now. give lasix infusion. EKG no changes. will put on remote tele. Hyponatremia chronic due to cirrhosis of liver, hypervolemia, malnutrition with very low solute in diet( tea toast diet effect) will try to diurese, improve diet. Cirrhosis of liver due to alcohol abuse sober 5 months. continue thiamine, folate, lasix as above SEVERE protein calorie malnutrition with albumin of 1.4, bitemporal waisting. Her BMI is falsely elevated due to anasarca. dietary consult. Severe generalized deconditioning,failure to thrive, unable to ambulate unable to do ADLS Does not have consistent 24 hour help at home. PT and OT Chronic asthma/ interstitial lung disease/ smoker albuterol prn. Chronic diarrhea due to h/o chronic pancreatitis and severe malnutrition. will get a GI panel if she has diarrhea again Hypothyroid continue Synthroid Hypertension on metoprolol will continue with hold parameters patient may not even need it due to weight loss and lowish bp now. Plan / VTE VTE Prophylaxis Ordered?: Yes VIRGINIA SAINZ MD May 19, 2019 02:14
[2019-05-19] MEDS: LEVOTHYROXINE 50MCG TABLET (0.05MG) PO SCH (05:28)
[2019-05-19] MEDS: ALBUTEROL SULFATE 2.5 MG/0.5 ML INH NEB SOLN NEB SCH ×3 (07:32→23:25)
[2019-05-19 08:21] LABS: CALCIUM LEVEL 7.2 MG/DL (8.8-10.2); CREATININE FOR GFR 1.12 MG/DL (0.55-1.30); GLOMERULAR FILTRATION RATE 51.8 (>45); MAGNESIUM LEVEL 1.6 MG/DL (1.8-2.4); POTASSIUM SERUM 5.7 MEQ/L (3.5-5.1); THYROID STIMULATING HORMONE 15.1 uIU/ML (0.358-3.740)
[2019-05-19] MEDS: METOPROLOL TART 12.5 MG PER 1/2 TAB PO SCH ×2 (08:33→20:07)
[2019-05-19 08:59] LABS: BASO % 0.6 % (0.0-1.0); HEMATOCRIT 31.2 % (36.0-47.0); HEMOGLOBIN 10.9 g/dl (12.0-15.5); LYMPH # 1.6 10^3/uL (1.5-5.0); LYMPH % 23.1 % (24.0-44.0); MEAN CORPUSCULAR HEMOGLOBIN 31.5 pg (27.0-33.0); MEAN CORPUSCULAR HGB CONC 34.9 g/dl (32.0-36.5); MEAN CORPUSCULAR VOLUME 90.2 fl (80.0-96.0); MONO # 0.6 10^3/uL (0.0-0.8); MONO % 9.4 % (0.0-5.0); NEUTROPHILS # 4.5 10^3/uL (1.5-8.5); NEUTROPHILS % 66.5 % (36.0-66.0); PLATELET COUNT, AUTOMATED 206 10^3/uL (150-450); RED BLOOD COUNT 3.46 10^6/uL (4.00-5.40); WHITE BLOOD COUNT 6.7 10^3/uL (4.0-10.0)
[2019-05-19] MEDS: CitaloPRAM (CeleXA) 20 MG TAB PO SCH (09:00)
[2019-05-19] MEDS: PANTOPRAZOLE 40MG TAB (PROTONIX) PO SCH (09:00)
[2019-05-19] MEDS: THIAMINE 100 MG TAB PO SCH (09:00)
[2019-05-19] MEDS: FERROUS SULFATE 325MG TAB PO SCH (09:00)
[2019-05-19] MEDS: ATORVASTATIN 10 MG TAB PO SCH (20:07)
[2019-05-19] MEDS: FOLIC ACID 1 MG TAB PO SCH (20:07)
[2019-05-20] VITALS (8 sets, daily range): BP systolic 102–115; BP diastolic 53–175
[2019-05-20] MEDS: FUROSEMIDE injection 250 MG in D5W 225 ML IV SCH (00:29)
[2019-05-20] MEDS: LEVOTHYROXINE 50MCG TABLET (0.05MG) PO SCH (05:53)
[2019-05-20 05:58] LABS: BASO % 0.8 % (0.0-1.0); EOS % 0.4 % (0.0-3.0); HEMATOCRIT 25.3 % (36.0-47.0); LYMPH # 1.3 10^3/uL (1.5-5.0); LYMPH % 24.2 % (24.0-44.0); MEAN CORPUSCULAR HEMOGLOBIN 31.1 pg (27.0-33.0); MEAN CORPUSCULAR HGB CONC 34.8 g/dl (32.0-36.5); MEAN CORPUSCULAR VOLUME 89.4 fl (80.0-96.0); MONO # 0.6 10^3/uL (0.0-0.8); NEUTROPHILS # 3.3 10^3/uL (1.5-8.5); NEUTROPHILS % 63.2 % (36.0-66.0); PLATELET COUNT, AUTOMATED 172 10^3/uL (150-450); RED BLOOD COUNT 2.83 10^6/uL (4.00-5.40); WHITE BLOOD COUNT 5.3 10^3/uL (4.0-10.0)
[2019-05-20 06:12] LABS: HEMOGLOBIN 8.8 g/dl (12.0-15.5)
[2019-05-20 06:36] LABS: CALCIUM LEVEL 7.8 MG/DL (8.8-10.2); CREATININE FOR GFR 1.11 MG/DL (0.55-1.30); GLOMERULAR FILTRATION RATE 52.4 (>45); MAGNESIUM LEVEL 1.5 MG/DL (1.8-2.4)
[2019-05-20] MEDS ORDERED: MAG SULF 1GM/100ML (MAG RUN) 1 GM in IV 1 EA IV ONE (07:45)
[2019-05-20] MEDS: ALBUTEROL SULFATE 2.5 MG/0.5 ML INH NEB SOLN NEB SCH ×2 (08:00→20:04)
[2019-05-20] MEDS: METOPROLOL TART 12.5 MG PER 1/2 TAB PO SCH ×2 (08:39→19:49)
[2019-05-20] MEDS: PANTOPRAZOLE 40MG TAB (PROTONIX) PO SCH (08:40)
[2019-05-20] MEDS: CitaloPRAM (CeleXA) 20 MG TAB PO SCH (08:40)
[2019-05-20] MEDS: FERROUS SULFATE 325MG TAB PO SCH (08:40)
[2019-05-20] MEDS: THIAMINE 100 MG TAB PO SCH (08:40)
--- NOTE | 2019-05-20 10:50 | IPNPDOC ---
Text Note Date of Service The patient was seen on 05/20/19. NOTE Subjective: Patient seen and examined at bedside. No new medical complaints this morning. States she feels tired and is requesting not to have participate with physical therapy. Objective: General: NAD, lying comfortably in bed, chronically ill appearing HEENT: NC/AT, EOMI, PERRL Lungs: CTA B/L, diminished breath sounds, scattered wheezes Heart: +S1S2, RRR Abd: soft, NT, +BS Ext: no edema A/P: 68 year old female with alcoholic cirrhosis, chronic pancreatitis, gastrojejunostomy due to failed Wipples's procedure in 2013, chronic diarrhea, severe malnutrition , severe hypoalbuminemia, chronic hyponatremia, failure to thrive, smoker, states no alcohol intake for 5 months called EMS for weakness and unable to get out off her couch for over 2 days. EMS found her to be sitting in couch soiled in feces. In the ED patient is found to have severe generalized anasarca with severe hypalbuminemia, hyponatremia, hyperkalemia, SEVERE Malnutrition, failure to thrive and unable to do her ADLS , unable to ambulate. #Anasarca - Due to severe malnutrition and severe hypoalbuminemia - this is due to cirrhosis of liver and chronic pancreatitis with chronic diarrhea causing hypoalbuminemia. - s/p albumin and lasix infusion to mobilize the fluids - Lora for patient comfort and measurement of intake and output. #Hyperkalemia - probably due to spironolactone use - will hold for now. give lasix infusion. - EKG no changes, tele shows sinus tachy #Hyponatremia chronic - improving - due to cirrhosis of liver, hypervolemia, malnutrition with very low solute in diet( tea toast diet effect) #Cirrhosis of liver - due to alcohol abuse - sober 5 months. - continue thiamine, folate, lasix as above #SEVERE protein calorie malnutrition - with albumin of 1.4, bitemporal waisting. - Her BMI is falsely elevated due to anasarca. - dietary consult. #Severe generalized deconditioning,failure to thrive, unable to ambulate unable to do ADLS - Does not have consistent 24 hour help at home. - PT and OT #Chronic asthma/ interstitial lung disease/ smoker - albuterol prn. #Chronic diarrhea - due to h/o chronic pancreatitis and severe malnutrition. - GI panel unrevealing #Hypothyroid - continue Synthroid #HTN - on metoprolol - will continue with hold parameters - patient may not even need it due to weight loss and persistent low normal bp now. VS,Fishbone, I+O VS, Fishbone, I+O Laboratory Tests 05/20/19 05:38 Red Blood Count 2.83 L, Mean Corpuscular Volume 89.4, Mean Corpuscular Hemoglobin 31.1, Mean Corpuscular Hemoglobin Concent 34.8, Red Cell Distribution Width 15.6 H, Neutrophils (%) (Auto) 63.2, Lymphocytes (%) (Auto) 24.2, Monocytes (%) (Auto) 11.0 H, Eosinophils (%) (Auto) 0.4, Basophils (%) (Auto) 0.8, Neutrophils # (Auto) 3.3, Lymphocytes # (Auto) 1.3 L, Monocytes # (Auto) 0.6, Eosinophils # (Auto) 0.0, Basophils # (Auto) 0.0, Calcium Level 7.8 L Vital Signs Date Time Temp Pulse Resp B/P (MAP) Pulse Ox O2 Delivery O2 Flow Rate FiO2 05/20/19 08:39 114/59 05/20/19 08:00 97.6 100 14 89 05/18/19 18:31 Room Air I&O- Last 24 Hours up to 6 AM 05/20/19 06:00 Intake Total 710 ml Output Total 3475 ml Balance -2765 ml ROMULO WARD MD May 20, 2019 10:50
[2019-05-20] MEDS ORDERED: SLF 3 ML SYR IV PRN (11:30)
[2019-05-20] MEDS: SLF 3 ML SYR IV SCH ×2 (14:00→22:00)
[2019-05-20] MEDS: FOLIC ACID 1 MG TAB PO SCH (19:49)
[2019-05-20] MEDS: ATORVASTATIN 10 MG TAB PO SCH (19:49)
[2019-05-21] MEDS: FUROSEMIDE injection 250 MG in D5W 225 ML IV SCH (01:49)
[2019-05-21] MEDS: ALBUTEROL SULFATE 2.5 MG/0.5 ML INH NEB SOLN NEB SCH ×4 (03:26→23:28)
[2019-05-21 06:00] VITALS: BP 98/53
[2019-05-21 06:19] LABS: BASO % 0.6 % (0.0-1.0); HEMATOCRIT 23.7 % (36.0-47.0); HEMOGLOBIN 8.3 g/dl (12.0-15.5); LYMPH # 1.4 10^3/uL (1.5-5.0); LYMPH % 27.4 % (24.0-44.0); MEAN CORPUSCULAR HEMOGLOBIN 30.2 pg (27.0-33.0); MEAN CORPUSCULAR VOLUME 86.2 fl (80.0-96.0); MONO # 0.6 10^3/uL (0.0-0.8); MONO % 11.2 % (0.0-5.0); NEUTROPHILS % 60.4 % (36.0-66.0); PLATELET COUNT, AUTOMATED 177 10^3/uL (150-450); RED BLOOD COUNT 2.75 10^6/uL (4.00-5.40)
[2019-05-21] MEDS: LEVOTHYROXINE 50MCG TABLET (0.05MG) PO SCH (06:35)
[2019-05-21] MEDS: SLF 3 ML SYR IV SCH ×3 (06:36→21:13)
[2019-05-21 06:54] LABS: CALCIUM LEVEL 7.5 MG/DL (8.8-10.2); CREATININE FOR GFR 0.99 MG/DL (0.55-1.30); GLOMERULAR FILTRATION RATE 59.7 (>45); MAGNESIUM LEVEL 1.3 MG/DL (1.8-2.4); POTASSIUM SERUM 2.8 MEQ/L (3.5-5.1)
[2019-05-21] MEDS ORDERED: MAG SULF 1GM/100ML (MAG RUN) 1 GM in IV 1 EA IV ONE (08:00)
[2019-05-21] MEDS ORDERED: POTASSIUM CHLORIDE 10 MEQ SR TABLET PO ONE (08:00)
[2019-05-21] MEDS: METOPROLOL TART 12.5 MG PER 1/2 TAB PO SCH ×2 (09:00→19:47)
[2019-05-21] MEDS: FERROUS SULFATE 325MG TAB PO SCH (09:24)
[2019-05-21] MEDS: CitaloPRAM (CeleXA) 20 MG TAB PO SCH (09:24)
[2019-05-21] MEDS: PANTOPRAZOLE 40MG TAB (PROTONIX) PO SCH (09:24)
[2019-05-21] MEDS: THIAMINE 100 MG TAB PO SCH (09:24)
[2019-05-21 10:16] LABS: ALBUMIN 2.5 GM/DL (3.2-5.2)
--- NOTE | 2019-05-21 11:00 | IPNPDOC ---
Text Note Date of Service The patient was seen on 05/21/19. NOTE Subjective: Patient seen and examined at bedside. No new medical complaints this morning. States she feels tired and is requesting not to have participate with physical therapy. Objective: General: NAD, lying comfortably in bed, chronically ill appearing HEENT: NC/AT, EOMI, PERRL Lungs: CTA B/L, diminished breath sounds, scattered wheezes Heart: +S1S2, RRR Abd: soft, NT, +BS Ext: no edema A/P: 68 year old female with alcoholic cirrhosis, chronic pancreatitis, gastrojejunostomy due to failed Wipples's procedure in 2013, chronic diarrhea, severe malnutrition , severe hypoalbuminemia, chronic hyponatremia, failure to thrive, smoker, states no alcohol intake for 5 months called EMS for weakness and unable to get out off her couch for over 2 days. EMS found her to be sitting in couch soiled in feces. In the ED patient is found to have severe generalized anasarca with severe hypalbuminemia, hyponatremia, hyperkalemia, SEVERE Malnutrition, failure to thrive and unable to do her ADLS , unable to ambulate. #Anasarca - Due to severe malnutrition and severe hypoalbuminemia - this is due to cirrhosis of liver and chronic pancreatitis with chronic diarrhea causing hypoalbuminemia. - s/p albumin and lasix infusion - can d/c healy this afternoon #anemia - Hgb slowly trending down - avoid heparin products - continue to follow #Hypokalemia - from lasix gtt - replete and follow #Hyponatremia chronic - improving - due to cirrhosis of liver, hypervolemia, malnutrition with very low solute in diet (tea toast diet effect) #Cirrhosis of liver - due to alcohol abuse - sober 5 months. - continue thiamine, folate, lasix PO #SEVERE protein calorie malnutrition - with albumin of 1.4, bitemporal waisting. - Her BMI is falsely elevated due to anasarca. - dietary consult. #Severe generalized deconditioning,failure to thrive, unable to ambulate unable to do ADLS - Does not have consistent 24 hour help at home. - PT and OT #Chronic asthma/ interstitial lung disease/ smoker - albuterol prn. #Chronic diarrhea - due to h/o chronic pancreatitis and severe malnutrition. - GI panel unrevealing #Hypothyroid - continue Synthroid #HTN - on metoprolol - will continue with hold parameters - patient may not even need it due to weight loss and persistent low normal bp now. #DVT prophylaxis - mechanical Dispo: pending placement for rehab VS,Fishbone, I+O VS, Fishbone, I+O Laboratory Tests 05/21/19 05:42 Red Blood Count 2.75 L, Mean Corpuscular Volume 86.2, Mean Corpuscular Hemoglobin 30.2, Mean Corpuscular Hemoglobin Concent 35.0, Red Cell Distribution Width 15.6 H, Neutrophils (%) (Auto) 60.4, Lymphocytes (%) (Auto) 27.4, Monocytes (%) (Auto) 11.2 H, Eosinophils (%) (Auto) 0.0, Basophils (%) (Auto) 0.6, Neutrophils # (Auto) 3.0, Lymphocytes # (Auto) 1.4 L, Monocytes # (Auto) 0.6, Eosinophils # (Auto) 0.0, Basophils # (Auto) 0.0, Calcium Level 7.5 L Vital Signs Date Time Temp Pulse Resp B/P (MAP) Pulse Ox O2 Delivery O2 Flow Rate FiO2 05/21/19 09:00 121 98/56 05/21/19 06:00 99.3 16 90 05/18/19 18:31 Room Air I&O- Last 24 Hours up to 6 AM 05/21/19 06:00 Intake Total 788 ml Output Total 2975 ml Balance -2187 ml ROMULO WARD MD May 21, 2019 11:00
[2019-05-21] MEDS: FUROSEMIDE 40 MG TAB PO SCH (12:38)
[2019-05-21 14:00] VITALS: BP 104/62
[2019-05-21 15:28] LABS: MAGNESIUM LEVEL 1.8 MG/DL (1.8-2.4)
[2019-05-21 17:42] LABS: POTASSIUM SERUM 3.4 MEQ/L (3.5-5.1)
[2019-05-21 19:30] VITALS: BP 118/71
[2019-05-21] MEDS: FOLIC ACID 1 MG TAB PO SCH (19:46)
[2019-05-21] MEDS: ATORVASTATIN 10 MG TAB PO SCH (19:46)
[2019-05-22] MEDS: SLF 3 ML SYR IV SCH ×3 (05:43→22:01)
[2019-05-22] MEDS: LEVOTHYROXINE 50MCG TABLET (0.05MG) PO SCH (05:43)
[2019-05-22 06:00] VITALS: BP 102/51
[2019-05-22 06:40] LABS: BASO # 0.1 10^3/uL (0.0-0.2); EOS % 0.2 % (0.0-3.0); HEMATOCRIT 25.4 % (36.0-47.0); HEMOGLOBIN 8.8 g/dl (12.0-15.5); LYMPH # 1.8 10^3/uL (1.5-5.0); LYMPH % 31.7 % (24.0-44.0); MEAN CORPUSCULAR HEMOGLOBIN 30.2 pg (27.0-33.0); MEAN CORPUSCULAR HGB CONC 34.6 g/dl (32.0-36.5); MEAN CORPUSCULAR VOLUME 87.3 fl (80.0-96.0); MONO # 0.6 10^3/uL (0.0-0.8); MONO % 11.1 % (0.0-5.0); NEUTROPHILS # 3.2 10^3/uL (1.5-8.5); NEUTROPHILS % 55.3 % (36.0-66.0); PLATELET COUNT, AUTOMATED 191 10^3/uL (150-450); RED BLOOD COUNT 2.91 10^6/uL (4.00-5.40); WHITE BLOOD COUNT 5.7 10^3/uL (4.0-10.0)
[2019-05-22 06:55] LABS: BLOOD UREA NITROGEN 11 MG/DL (7-18); CALCIUM LEVEL 7.8 MG/DL (8.8-10.2); CARBON DIOXIDE LEVEL 35 MEQ/L (21-32); CHLORIDE LEVEL 91 MEQ/L (98-107); CREATININE FOR GFR 0.98 MG/DL (0.55-1.30); GLOMERULAR FILTRATION RATE > 60.0 (>45); GLUCOSE, FASTING 96 MG/DL (70-100); MAGNESIUM LEVEL 1.5 MG/DL (1.8-2.4); POTASSIUM SERUM 3.1 MEQ/L (3.5-5.1); SODIUM LEVEL 132 MEQ/L (136-145)
[2019-05-22] MEDS: ALBUTEROL SULFATE 2.5 MG/0.5 ML INH NEB SOLN NEB SCH ×2 (07:51→15:19)
[2019-05-22] MEDS ORDERED: POTASSIUM CHLORIDE 10 MEQ SR TABLET PO ONE (08:00)
[2019-05-22] MEDS ORDERED: MAG SULF 1GM/100ML (MAG RUN) 1 GM in IV 1 EA IV ONE (08:00)
[2019-05-22] MEDS: FUROSEMIDE 40 MG TAB PO SCH (10:06)
[2019-05-22] MEDS: METOPROLOL TART 12.5 MG PER 1/2 TAB PO SCH ×2 (10:07→21:00)
[2019-05-22] MEDS: PANTOPRAZOLE 40MG TAB (PROTONIX) PO SCH (10:08)
[2019-05-22] MEDS: CitaloPRAM (CeleXA) 20 MG TAB PO SCH (10:08)
[2019-05-22] MEDS: THIAMINE 100 MG TAB PO SCH (10:08)
[2019-05-22] MEDS: FERROUS SULFATE 325MG TAB PO SCH (10:08)
--- NOTE | 2019-05-22 11:36 | IPNPDOC ---
Text Note Date of Service The patient was seen on 05/22/19. NOTE Subjective: Patient seen and examined at bedside. Feels better today, but notes some abdominal pain she rates as 2/10. No other medical complaints. 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 EMS found her to be sitting in couch soiled in feces. In the ED patient is found to have severe generalized anasarca with severe hypalbuminemia, hyponatremia, hyperkalemia, SEVERE Malnutrition, failure to thrive and unable to do her ADLS , unable to ambulate. #Anasarca - Due to severe malnutrition and severe hypoalbuminemia - this is due to cirrhosis of liver and chronic pancreatitis with chronic diarrhea causing hypoalbuminemia. - s/p albumin and lasix infusion #anemia - avoid heparin products - continue to follow #Hypokalemia - replete and follow #Hyponatremia chronic - due to cirrhosis of liver, hypervolemia, malnutrition with very low solute in diet (tea toast diet effect) #Cirrhosis of liver - due to alcohol abuse - sober 5 months. - continue thiamine, folate, lasix PO #SEVERE protein calorie malnutrition - with bitemporal waisting. - Her BMI is falsely elevated due to anasarca. - dietary consult. #Severe generalized deconditioning,failure to thrive, unable to ambulate unable to do ADLS - Does not have consistent 24 hour help at home. - PT and OT #Chronic asthma/ interstitial lung disease/ smoker - albuterol prn. #Chronic diarrhea - due to h/o chronic pancreatitis and severe malnutrition. - GI panel unrevealing #Hypothyroid - continue Synthroid #HTN - on metoprolol - will continue with hold parameters - patient may not even need it due to weight loss and persistent low normal bp n ow. #DVT prophylaxis - mechanical Dispo: pending placement for rehab VS,Fishbone, I+O VS, Fishbone, I+O Laboratory Tests 05/21/19 14:48 05/22/19 05:38 Red Blood Count 2.91 L, Mean Corpuscular Volume 87.3, Mean Corpuscular Hemoglobin 30.2, Mean Corpuscular Hemoglobin Concent 34.6, Red Cell Distribution Width 16.0 H, Neutrophils (%) (Auto) 55.3, Lymphocytes (%) (Auto) 31.7, Monocytes (%) (Auto) 11.1 H, Eosinophils (%) (Auto) 0.2, Basophils (%) (Auto) 1.0, Neutrophils # (Auto) 3.2, Lymphocytes # (Auto) 1.8, Monocytes # (Auto) 0.6, Eosinophils # (Auto) 0.0, Basophils # (Auto) 0.1, Calcium Level 7.8 L Vital Signs Date Time Temp Pulse Resp B/P (MAP) Pulse Ox O2 Delivery O2 Flow Rate FiO2 05/22/19 10:07 90 107/54 05/22/19 06:00 99.6 16 91 05/18/19 18:31 Room Air I&O- Last 24 Hours up to 6 AM 05/22/19 06:00 Intake Total 600 ml Output Total 1435 ml Balance -835 ml ROMULO WARD MD May 22, 2019 11:36
--- NOTE | 2019-05-22 13:16 | REP ---
Clinical: Abdominal pain and distension. Technique: Axial noncontrast images from the lung bases to the pubic symphysis with coronal and sagittal re-formations. Comparison: 04/06/2019. Findings: Lung bases demonstrate moderate bilateral pleural effusions with associated atelectasis (left greater than right) which is increased from prior examination. Large amount of ascites has increased from prior examination along with increased mesenteric edema and reactive mesenteric adenopathy. Liver, spleen, bilateral adrenal glands and kidneys are relatively normal / stable when compared to prior examination. Evidence of prior cholecystectomy again noted as well as findings to suggest chronic pancreatitis. The enteric system is poorly evaluated due to the lack of contrast and surrounding fluid/inflammatory mesenteric changes, but there is no evidence for bowel obstruction and no free air to suggest perforation. Underlying enterocolitis cannot definitively be excluded. Pelvis demonstrates normal bladder and relatively normal / stable appearance to the uterus. Extensive atherosclerotic changes to the aorta and vasculature noted without aneurysm. Musculoskeletal structures demonstrate age-related osteopenia and degenerative changes without focal abnormality. Impression: Significantly increased bilateral pleural effusions and ascites as well as inflammatory stranding through the mesentery with reactive adenopathy. Findings are nonspecific. Electronically Signed by Getachew Wright MD 05/22/2019 01:07 P
[2019-05-22 14:00] VITALS: BP 109/56
[2019-05-22 21:59] VITALS: BP 104/55
[2019-05-22 22:00] VITALS: BP 106/56
[2019-05-22] MEDS: FOLIC ACID 1 MG TAB PO SCH (22:01)
[2019-05-22] MEDS: ATORVASTATIN 10 MG TAB PO SCH (22:01)
[2019-05-23] MEDS: ALBUTEROL SULFATE 2.5 MG/0.5 ML INH NEB SOLN NEB SCH ×3 (00:24→15:25)
[2019-05-23] MEDS ORDERED: oxyCODONE 5MG TAB PO ONE ×2 (03:15→23:00)
[2019-05-23 06:00] VITALS: BP 110/58
[2019-05-23 06:21] LABS: BASO # 0.1 10^3/uL (0.0-0.2); EOS % 0.5 % (0.0-3.0); HEMATOCRIT 23.1 % (36.0-47.0); LYMPH # 1.7 10^3/uL (1.5-5.0); LYMPH % 29.3 % (24.0-44.0); MEAN CORPUSCULAR HEMOGLOBIN 30.4 pg (27.0-33.0); MEAN CORPUSCULAR HGB CONC 34.6 g/dl (32.0-36.5); MEAN CORPUSCULAR VOLUME 87.8 fl (80.0-96.0); MONO # 0.9 10^3/uL (0.0-0.8); MONO % 14.7 % (0.0-5.0); NEUTROPHILS # 3.2 10^3/uL (1.5-8.5); NEUTROPHILS % 54.2 % (36.0-66.0); PLATELET COUNT, AUTOMATED 177 10^3/uL (150-450); RED BLOOD COUNT 2.63 10^6/uL (4.00-5.40); WHITE BLOOD COUNT 5.9 10^3/uL (4.0-10.0)
[2019-05-23] MEDS: SLF 3 ML SYR IV SCH ×3 (06:21→21:29)
[2019-05-23] MEDS: LEVOTHYROXINE 50MCG TABLET (0.05MG) PO SCH (06:21)
[2019-05-23 06:46] LABS: BLOOD UREA NITROGEN 11 MG/DL (7-18); CALCIUM LEVEL 7.5 MG/DL (8.8-10.2); CARBON DIOXIDE LEVEL 36 MEQ/L (21-32); CHLORIDE LEVEL 91 MEQ/L (98-107); CREATININE FOR GFR 0.95 MG/DL (0.55-1.30); GLOMERULAR FILTRATION RATE > 60.0 (>45); GLUCOSE, FASTING 83 MG/DL (70-100); MAGNESIUM LEVEL 1.7 MG/DL (1.8-2.4); POTASSIUM SERUM 3.7 MEQ/L (3.5-5.1); SODIUM LEVEL 131 MEQ/L (136-145)
[2019-05-23] MEDS: FERROUS SULFATE 325MG TAB PO SCH (09:38)
[2019-05-23] MEDS: METOPROLOL TART 12.5 MG PER 1/2 TAB PO SCH ×2 (09:38→21:00)
[2019-05-23] MEDS: THIAMINE 100 MG TAB PO SCH (09:38)
[2019-05-23] MEDS: CitaloPRAM (CeleXA) 20 MG TAB PO SCH (09:38)
[2019-05-23] MEDS: PANTOPRAZOLE 40MG TAB (PROTONIX) PO SCH (09:38)
[2019-05-23] MEDS: FUROSEMIDE 40 MG TAB PO SCH (09:39)
--- NOTE | 2019-05-23 10:32 | IPNPDOC ---
Text Note Date of Service The patient was seen on 05/23/19. NOTE Subjective: Patient seen and examined at bedside. Feels better today, but notes some abdominal pain she rates as 2/10. No other medical complaints. 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 EMS found her to be sitting in couch soiled in feces. In the ED patient is found to have severe generalized anasarca with severe hypalbuminemia, hyponatremia, hyperkalemia, SEVERE Malnutrition, failure to thrive and unable to do her ADLS , unable to ambulate. #Anasarca - Due to severe malnutrition and severe hypoalbuminemia - this is due to cirrhosis of liver and chronic pancreatitis with chronic diarrhea causing hypoalbuminemia. - s/p albumin and lasix infusion #anemia - avoid heparin products - continue to follow #Hypokalemia - replete and follow #Hyponatremia chronic - due to cirrhosis of liver, hypervolemia, malnutrition with very low solute in diet (tea toast diet effect) #Cirrhosis of liver - due to alcohol abuse - sober 5 months. - continue thiamine, folate, lasix PO #SEVERE protein calorie malnutrition - with bitemporal waisting. - Her BMI is falsely elevated due to anasarca. - dietary consult. #Severe generalized deconditioning,failure to thrive, unable to ambulate unable to do ADLS - Does not have consistent 24 hour help at home. - PT and OT #Chronic asthma/ interstitial lung disease/ smoker - albuterol prn. #Chronic diarrhea - due to h/o chronic pancreatitis and severe malnutrition. - GI panel unrevealing #Hypothyroid - continue Synthroid #HTN - on metoprolol - will continue with hold parameters - patient may not even need it due to weight loss and persistent low normal bp n ow. #DVT prophylaxis - mechanical Dispo: pending placement for rehab VS,Fishbone, I+O VS, Fishbone, I+O Laboratory Tests 05/23/19 05:47 Red Blood Count 2.63 L, Mean Corpuscular Volume 87.8, Mean Corpuscular Hemoglobin 30.4, Mean Corpuscular Hemoglobin Concent 34.6, Red Cell Distribution Width 16.2 H, Neutrophils (%) (Auto) 54.2, Lymphocytes (%) (Auto) 29.3, Monocytes (%) (Auto) 14.7 H, Eosinophils (%) (Auto) 0.5, Basophils (%) (Auto) 1.0, Neutrophils # (Auto) 3.2, Lymphocytes # (Auto) 1.7, Monocytes # (Auto) 0.9 H, Eosinophils # (Auto) 0.0, Basophils # (Auto) 0.1, Calcium Level 7.5 L Vital Signs Date Time Temp Pulse Resp B/P (MAP) Pulse Ox O2 Delivery O2 Flow Rate FiO2 05/23/19 09:38 124 119/53 05/23/19 06:00 97.5 18 91 05/18/19 18:31 Room Air I&O- Last 24 Hours up to 6 AM 05/23/19 06:00 Intake Total 840 ml Balance 840 ml ROMULO WARD MD May 23, 2019 10:32
[2019-05-23] MEDS ORDERED: MAG SULF 1GM/100ML (MAG RUN) 1 GM in IV 1 EA IV ONE (11:00)
[2019-05-23 14:00] VITALS: BP 95/53
[2019-05-23 14:05] VITALS: BP 100/60
[2019-05-23] MEDS: ATORVASTATIN 10 MG TAB PO SCH (21:24)
[2019-05-23] MEDS: FOLIC ACID 1 MG TAB PO SCH (21:24)
[2019-05-23 22:00] VITALS: BP 95/52
[2019-05-24] MEDS: ALBUTEROL SULFATE 2.5 MG/0.5 ML INH NEB SOLN NEB SCH ×4 (00:03→23:19)
[2019-05-24] MEDS ORDERED: oxyCODONE 5MG TAB PO ONE (02:00)
[2019-05-24 06:00] VITALS: BP 99/60
[2019-05-24 06:30] LABS: HEMATOCRIT 23.5 % (36.0-47.0); HEMOGLOBIN 8.2 g/dl (12.0-15.5); MEAN CORPUSCULAR HEMOGLOBIN 30.6 pg (27.0-33.0); MEAN CORPUSCULAR HGB CONC 34.9 g/dl (32.0-36.5); MEAN CORPUSCULAR VOLUME 87.7 fl (80.0-96.0); PLATELET COUNT, AUTOMATED 177 10^3/uL (150-450); RED BLOOD COUNT 2.68 10^6/uL (4.00-5.40); WHITE BLOOD COUNT 6.2 10^3/uL (4.0-10.0)
[2019-05-24] MEDS: SLF 3 ML SYR IV SCH ×2 (06:41→14:15)
[2019-05-24] MEDS: LEVOTHYROXINE 50MCG TABLET (0.05MG) PO SCH (06:41)
[2019-05-24 07:01] LABS: CALCIUM LEVEL 7.4 MG/DL (8.8-10.2); CREATININE FOR GFR 1.03 MG/DL (0.55-1.30); GLOMERULAR FILTRATION RATE 57.1 (>45); MAGNESIUM LEVEL 1.8 MG/DL (1.8-2.4); POTASSIUM SERUM 3.9 MEQ/L (3.5-5.1)
[2019-05-24 07:48] LABS: ATYPICAL LYMPH 2 % (0-5); BASOPHILS 1 % (0-1); LYMPHOCYTES 32 % (16-44); MONOCYTES 12 % (0-5); NEUTROPHILS 53 % (28-66)
[2019-05-24 07:49] LABS: ANISOCYTOSIS 1+; PLATELET ESTIMATE NORMAL (NORMAL)
[2019-05-24] MEDS ORDERED: FUROSEMIDE 100 MG/10 ML VIAL (J1940) IV SCH (09:00)
[2019-05-24] MEDS: METOPROLOL TART 12.5 MG PER 1/2 TAB PO SCH ×2 (09:00→20:41)
[2019-05-24] MEDS: PANTOPRAZOLE 40MG TAB (PROTONIX) PO SCH (09:53)
[2019-05-24] MEDS: FERROUS SULFATE 325MG TAB PO SCH (09:53)
[2019-05-24] MEDS: CitaloPRAM (CeleXA) 20 MG TAB PO SCH (09:53)
[2019-05-24] MEDS: THIAMINE 100 MG TAB PO SCH (09:53)
[2019-05-24] MEDS ORDERED: FUROSEMIDE 20 MG/2 ML VIAL (J1940) IV ONE (10:30)
--- NOTE | 2019-05-24 11:44 | IPNPDOC ---
Text Note Date of Service The patient was seen on 05/24/19. NOTE Subjective: Patient seen and examined at bedside. Feels better today. No other medical complaints. 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 EMS found her to be sitting in couch soiled in feces. In the ED patient is found to have severe generalized anasarca with severe hypalbuminemia, hyponatremia, hyperkalemia, SEVERE Malnutrition, failure to thrive and unable to do her ADLS , unable to ambulate. #Anasarca - Due to severe malnutrition and severe hypoalbuminemia - this is due to cirrhosis of liver and chronic pancreatitis with chronic diarrhea causing hypoalbuminemia. - s/p albumin and lasix infusion - CT shows ascites - plan for paracentesis tomorrow #anemia - avoid heparin products - continue to follow #Hypokalemia - resolved today - continue to follow #Hyponatremia chronic - due to cirrhosis of liver, hypervolemia, malnutrition with very low solute in diet (tea toast diet effect) #Cirrhosis of liver - due to alcohol abuse - sober 5 months. - continue thiamine, folate, lasix PO #SEVERE protein calorie malnutrition - with bitemporal waisting. - Her BMI is falsely elevated due to anasarca. - dietary consult. #Severe generalized deconditioning,failure to thrive, unable to ambulate unable to do ADLS - Does not have consistent 24 hour help at home. - PT and OT #Chronic asthma/ interstitial lung disease/ smoker - albuterol prn. #Chronic diarrhea - due to h/o chronic pancreatitis and severe malnutrition. - GI panel unrevealing #Hypothyroid - continue Synthroid #HTN - on metoprolol - will continue with hold parameters - patient may not even need it due to weight loss and persistent low normal bp now. #DVT prophylaxis - mechanical Dispo: paracentesis tomorrow; lasix as tolerated; pending placement for rehab VS,Fishbone, I+O VS, Fishbone, I+O Laboratory Tests 05/24/19 06:17 Red Blood Count 2.68 L, Mean Corpuscular Volume 87.7, Mean Corpuscular Hemoglobin 30.6, Mean Corpuscular Hemoglobin Concent 34.9, Red Cell Distribution Width 16.0 H, Calcium Level 7.4 L Vital Signs Date Time Temp Pulse Resp B/P (MAP) Pulse Ox O2 Delivery O2 Flow Rate FiO2 05/24/19 09:00 96 111/58 05/24/19 06:00 97.1 18 89 05/18/19 18:31 Room Air I&O- Last 24 Hours up to 6 AM 05/24/19 06:00 Intake Total 720 ml Output Total 0 ml Balance 720 ml ROMULO WARD MD May 24, 2019 11:44
[2019-05-24 14:00] VITALS: BP 123/70
[2019-05-24] MEDS: ATORVASTATIN 10 MG TAB PO SCH (20:41)
[2019-05-24] MEDS: FOLIC ACID 1 MG TAB PO SCH (20:41)
[2019-05-25] MEDS: SLF 3 ML SYR IV SCH ×3 (00:59→17:43)
[2019-05-25] MEDS: LEVOTHYROXINE 50MCG TABLET (0.05MG) PO SCH (05:34)
[2019-05-25 06:00] VITALS: BP 106/55
[2019-05-25 06:17] LABS: BASO # 0.1 10^3/uL (0.0-0.2); EOS % 0.4 % (0.0-3.0); HEMATOCRIT 25.3 % (36.0-47.0); HEMOGLOBIN 8.7 g/dl (12.0-15.5); LYMPH # 1.8 10^3/uL (1.5-5.0); LYMPH % 24.6 % (24.0-44.0); MEAN CORPUSCULAR HGB CONC 34.4 g/dl (32.0-36.5); MONO # 0.7 10^3/uL (0.0-0.8); NEUTROPHILS # 4.6 10^3/uL (1.5-8.5); NEUTROPHILS % 63.6 % (36.0-66.0); PLATELET COUNT, AUTOMATED 207 10^3/uL (150-450); RED BLOOD COUNT 2.81 10^6/uL (4.00-5.40); WHITE BLOOD COUNT 7.3 10^3/uL (4.0-10.0)
[2019-05-25 06:34] LABS: BLOOD UREA NITROGEN 11 MG/DL (7-18); CALCIUM LEVEL 7.6 MG/DL (8.8-10.2); CARBON DIOXIDE LEVEL 35 MEQ/L (21-32); CHLORIDE LEVEL 90 MEQ/L (98-107); CREATININE FOR GFR 0.95 MG/DL (0.55-1.30); GLOMERULAR FILTRATION RATE > 60.0 (>45); GLUCOSE, FASTING 77 MG/DL (70-100); MAGNESIUM LEVEL 1.7 MG/DL (1.8-2.4); POTASSIUM SERUM 3.5 MEQ/L (3.5-5.1); SODIUM LEVEL 132 MEQ/L (136-145)
[2019-05-25] MEDS ORDERED: MAG SULF 1GM/100ML (MAG RUN) 1 GM in IV 1 EA IV ONE (07:30)
[2019-05-25] MEDS: ALBUTEROL SULFATE 2.5 MG/0.5 ML INH NEB SOLN NEB SCH ×2 (07:56→15:43)
[2019-05-25] MEDS: CitaloPRAM (CeleXA) 20 MG TAB PO SCH (08:32)
[2019-05-25] MEDS: FERROUS SULFATE 325MG TAB PO SCH (08:32)
[2019-05-25] MEDS: THIAMINE 100 MG TAB PO SCH (08:32)
[2019-05-25] MEDS: PANTOPRAZOLE 40MG TAB (PROTONIX) PO SCH (08:32)
[2019-05-25] MEDS: METOPROLOL TART 12.5 MG PER 1/2 TAB PO SCH ×2 (08:33→20:16)
--- NOTE | 2019-05-25 11:06 | IPNPDOC ---
Text Note Date of Service The patient was seen on 05/25/19. NOTE Subjective: Patient seen and examined at bedside. Feels better today. No other medical complaints. 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 EMS found her to be sitting in couch soiled in feces. In the ED patient is found to have severe generalized anasarca with severe hypalbuminemia, hyponatremia, hyperkalemia, SEVERE Malnutrition, failure to thrive and unable to do her ADLS , unable to ambulate. #Anasarca - Due to severe malnutrition and severe hypoalbuminemia - this is due to cirrhosis of liver and chronic pancreatitis with chronic diarrhea causing hypoalbuminemia. - s/p albumin and lasix infusion - CT shows ascites - plan for paracentesis today - 2.4L drained #anemia - avoid heparin products - continue to follow #Hypokalemia - resolved - continue to follow #Hyponatremia chronic - due to cirrhosis of liver, hypervolemia, malnutrition with very low solute in diet (tea toast diet effect) #Cirrhosis of liver - due to alcohol abuse - sober 5 months. - continue thiamine, folate, lasix PO #SEVERE protein calorie malnutrition - with bitemporal waisting. - Her BMI is falsely elevated due to anasarca. - dietary consult. #Severe generalized deconditioning,failure to thrive, unable to ambulate unable to do ADLS - Does not have consistent 24 hour help at home. - PT and OT #Chronic asthma/ interstitial lung disease/ smoker - albuterol prn. #Chronic diarrhea - due to h/o chronic pancreatitis and severe malnutrition. - GI panel unrevealing #Hypothyroid - continue Synthroid #HTN - on metoprolol - will continue with hold parameters - patient may not even need it due to weight loss and persistent low normal bp now. #DVT prophylaxis - mechanical Dispo: paracentesis today lasix as tolerated; pending placement for rehab VS,Fishbone, I+O VS, Fishbone, I+O Laboratory Tests 05/25/19 05:55 Red Blood Count 2.81 L, Mean Corpuscular Volume 90.0, Mean Corpuscular Hemoglobin 31.0, Mean Corpuscular Hemoglobin Concent 34.4, Red Cell Distribution Width 16.1 H, Neutrophils (%) (Auto) 63.6, Lymphocytes (%) (Auto) 24.6, Monocytes (%) (Auto) 10.0 H, Eosinophils (%) (Auto) 0.4, Basophils (%) (Auto) 1.0, Neutrophils # (Auto) 4.6, Lymphocytes # (Auto) 1.8, Monocytes # (Auto) 0.7, Eosinophils # (Auto) 0.0, Basophils # (Auto) 0.1, Calcium Level 7.6 L Vital Signs Date Time Temp Pulse Resp B/P (MAP) Pulse Ox O2 Delivery O2 Flow Rate FiO2 05/25/19 10:53 83 18 97 05/25/19 10:41 98.5 05/25/19 08:33 120/63 I&O- Last 24 Hours up to 6 AM 05/25/19 06:00 Intake Total 690 ml Output Total 350 ml Balance 340 ml ROMULO WARD MD May 25, 2019 11:06
[2019-05-25 11:29] LABS: APPEARANCE, BODY FLUID HAZY (CLEAR); ASCITES FL COLOR YELLOW (COLORLESS); SOURCE, BODY FLUID ASCITES
[2019-05-25 11:43] LABS: SOURCE, BODY FLUID GLUCOSE ASCITES
[2019-05-25 11:54] VITALS: BP 104/57
[2019-05-25 14:00] VITALS: BP 105/60
--- NOTE | 2019-05-25 16:49 | REP ---
Ultrasound-guided paracentesis The procedure was performed by DAMIR Casey, under the direct supervision of Dr. Burk. The risks and benefits of the procedure were explained to the patient and informed consent was obtained both verbally and written. Directly prior to the start of the procedure, a formal timeout was completed in the procedure room. Under ultrasound guidance, the largest pocket of fluid in the left flank was localized and skin was marked. The skin was then prepped and draped in a sterile fashion. 10 ml of 1% lidocaine was used as a local anesthetic. Using ultrasound guidance, an 8-Malay multi side-hole catheter was inserted using trocar technique. 200 mL of clear yellow colored fluid was withdrawn and sent to the lab for further analysis, an additional 2,200 ml of clear yellow fluid was withdrawn and discarded. The patient tolerated the procedure well and there were no immediate complications. After the appropriate monitored convalescence the patient was discharged from the department. Reviewed by DAMIR Catherine 05/25/2019 01:50 P Electronically Signed by Haider Burk MD 05/25/2019 04:40 P
[2019-05-25] MEDS: FUROSEMIDE 20 MG/2 ML VIAL (J1940) IV SCH (17:41)
[2019-05-25] MEDS: ATORVASTATIN 10 MG TAB PO SCH (20:17)
[2019-05-25] MEDS: FOLIC ACID 1 MG TAB PO SCH (20:17)
[2019-05-25 22:00] VITALS: BP 101/57
[2019-05-26] MEDS: ALBUTEROL SULFATE 2.5 MG/0.5 ML INH NEB SOLN NEB SCH ×3 (00:12→16:08)
[2019-05-26] MEDS: SLF 3 ML SYR IV SCH ×4 (00:16→23:18)
[2019-05-26] MEDS: LEVOTHYROXINE 50MCG TABLET (0.05MG) PO SCH (05:34)
[2019-05-26 06:00] VITALS: BP 101/55
[2019-05-26 07:59] VITALS: BP 108/58
[2019-05-26] MEDS: METOPROLOL TART 12.5 MG PER 1/2 TAB PO SCH ×2 (09:00→20:16)
[2019-05-26] MEDS: FUROSEMIDE 20 MG/2 ML VIAL (J1940) IV SCH ×2 (09:17→17:00)
[2019-05-26] MEDS: PANTOPRAZOLE 40MG TAB (PROTONIX) PO SCH (09:17)
[2019-05-26] MEDS: THIAMINE 100 MG TAB PO SCH (09:17)
[2019-05-26] MEDS: FERROUS SULFATE 325MG TAB PO SCH (09:17)
[2019-05-26] MEDS: CitaloPRAM (CeleXA) 20 MG TAB PO SCH (09:17)
[2019-05-26 10:28] LABS: HEMATOCRIT 27.6 % (36.0-47.0); HEMOGLOBIN 9.5 g/dl (12.0-15.5); MEAN CORPUSCULAR HEMOGLOBIN 31.3 pg (27.0-33.0); MEAN CORPUSCULAR HGB CONC 34.4 g/dl (32.0-36.5); MEAN CORPUSCULAR VOLUME 90.8 fl (80.0-96.0); PLATELET COUNT, AUTOMATED 211 10^3/uL (150-450); RED BLOOD COUNT 3.04 10^6/uL (4.00-5.40); WHITE BLOOD COUNT 7.9 10^3/uL (4.0-10.0)
[2019-05-26 10:49] LABS: CALCIUM LEVEL 7.7 MG/DL (8.8-10.2); CREATININE FOR GFR 1.04 MG/DL (0.55-1.30); GLOMERULAR FILTRATION RATE 56.4 (>45); POTASSIUM SERUM 3.5 MEQ/L (3.5-5.1)
[2019-05-26 14:00] VITALS: BP 106/56
--- NOTE | 2019-05-26 16:16 | IPNPDOC ---
Text Note Date of Service The patient was seen on 05/26/19. NOTE Subjective: Patient seen and examined at bedside. 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 #Cirrhosis of liver - 2/2 alcohol use disorder - sober 5 months. - continue thiamine, folate, lasix PO #Anasarva with significant ascites - Due to severe malnutrition and severe hypoalbuminemia in the setting of alcoh olic cirrhosis and chronic pancreatitis with pancreatic insufficients caused chronic diarrhea. - s/p paracentesis and removal of 2.4L on 05/25, albumin and lasix -continue PO lasix #SEVERE protein calorie malnutrition - with bitemporal waisting. - Her BMI is falsely elevated due to anasarca. - dietary consult. #anemia - avoiding heparin products - continue to follow #Hypokalemia - resolved #Hyponatremia: chronic - due to cirrhosis of liver, hypervolemia, malnutrition with very low solute in diet #Severe generalized deconditioning,failure to thrive, unable to ambulate unable to do ADLS - Does not have consistent 24 hour help at home. - PT and OT - Pending placement for rehabilitation #Chronic asthma/ interstitial lung disease/ smoker - albuterol prn. #Chronic diarrhea - due to h/o chronic pancreatitis #Hypothyroid - continue Synthroid #HTN - on metoprolol - will continue with hold parameters #DVT prophylaxis - mechanical Dispo: pending rehab placement VS,Fishbone, I+O VS, Fishbone, I+O Laboratory Tests 05/26/19 10:11 Red Blood Count 3.04 L, Mean Corpuscular Volume 90.8, Mean Corpuscular Hemoglobin 31.3, Mean Corpuscular Hemoglobin Concent 34.4, Red Cell Distribution Width 16.2 H, Calcium Level 7.7 L Vital Signs Date Time Temp Pulse Resp B/P (MAP) Pulse Ox O2 Delivery O2 Flow Rate FiO2 05/26/19 14:00 98.2 96 14 106/56 (42) 95 I&O- Last 24 Hours up to 6 AM 05/26/19 06:00 Intake Total 1230 ml Output Total 600 ml Balance 630 ml MARIE SEGUNDO MD May 26, 2019 16:15
[2019-05-26 18:46] LABS: MAGNESIUM LEVEL 1.9 MG/DL (1.8-2.4)
[2019-05-26] MEDS: ATORVASTATIN 10 MG TAB PO SCH (20:16)
[2019-05-26] MEDS: FOLIC ACID 1 MG TAB PO SCH (20:16)
[2019-05-26 22:00] VITALS: BP 101/58
[2019-05-27] MEDS: ALBUTEROL SULFATE 2.5 MG/0.5 ML INH NEB SOLN NEB SCH ×3 (00:20→15:10)
[2019-05-27] MEDS: LEVOTHYROXINE 50MCG TABLET (0.05MG) PO SCH (05:33)
[2019-05-27 06:00] VITALS: BP 106/55
[2019-05-27] MEDS: SLF 3 ML SYR IV SCH ×3 (06:37→21:08)
[2019-05-27] MEDS: METOPROLOL TART 12.5 MG PER 1/2 TAB PO SCH ×2 (09:00→21:00)
[2019-05-27] MEDS ORDERED: POTASSIUM CHLORIDE 10 MEQ SR TABLET PO ONE (09:00)
[2019-05-27] MEDS ORDERED: MAG SULF 1GM/100ML (MAG RUN) 1 GM in IV 1 EA IV ONE (09:00)
[2019-05-27] MEDS: PANTOPRAZOLE 40MG TAB (PROTONIX) PO SCH (09:45)
[2019-05-27] MEDS: THIAMINE 100 MG TAB PO SCH (09:45)
[2019-05-27] MEDS: FERROUS SULFATE 325MG TAB PO SCH (09:45)
[2019-05-27] MEDS: CitaloPRAM (CeleXA) 20 MG TAB PO SCH (09:45)
[2019-05-27] MEDS: FUROSEMIDE 20 MG/2 ML VIAL (J1940) IV SCH ×2 (09:47→18:15)
--- NOTE | 2019-05-27 13:30 | IPNPDOC ---
Text Note Date of Service The patient was seen on 05/27/19. NOTE Subjective: Feels well this morning Reported that she did not eat the breakfast because of the scrambled eggs. No medical complaints at this time Objective: General: NAD, chronically ill appearing, pale sitting up in bed HEENT: NC/AT, EOMI, PERRL Lungs: CTA B/L, diminished breath sounds, scattered wheezes Heart: +S1S2, RRR Abd: normoactive bowel sounds, soft, mild tenderness to palpation, distended, +shifting dullness Ext: no edema A/P: 68 year old woman with alcoholic cirrhosis, chronic pancreatitis, gastrojejunostomy after a failed Wipple procedure in 2013, chronic diarrhea, severe malnutrition , severe hypoalbuminemia, chronic hyponatremia, failure to thrive, smoker who was admitted for failure to thrive, malnutrition with severe weakness and inability to care for herself, and found to have anasarca with severe hypalbuminemia, hyponatremia, hyperkalemia. This admission has mostly focused on her volume status, nutrition and safe discharge and the tentative plan is for discharge tomorrow to short term rehabilitation after which she will hopefully be able to return home safely. #Cirrhosis of liver: 2/2 alcohol use disorder - Has been sober for 5 months - continue thiamine, folate, lasix PO #Anasarca with significant ascites: Due to severe malnutrition and severe hypoalbuminemia in the setting of alcoholic cirrhosis and chronic pancreatitis with pancreatic insufficiency caused chronic diarrhea. - s/p paracentesis and removal of 2.4L on 05/25, albumin and lasix - continue PO lasix #SEVERE protein calorie malnutrition - with bitemporal waisting. - Her BMI is falsely elevated due to anasarca. - On a mechanical soft diet but barely eats, will have nutrition see her and explore suggestions #anemia: 2/2 cirrhosis - avoiding heparin products - continue to follow #Hypokalemia - resolved #Hyponatremia: chronic - due to cirrhosis of liver, hypervolemia, malnutrition with very low solute in diet #Severe generalized deconditioning,failure to thrive, unable to ambulate unable to do ADLS - Does not have consistent 24 hour help at home. - PT and OT - Has been accepted at subacute rehabilitation for tomorrow for 11.30am depa rture #Chronic asthma/ interstitial lung disease/ smoker - albuterol prn. #Chronic diarrhea - due to h/o chronic pancreatitis #Hypothyroid - continue Synthroid #HTN - on metoprolol - will continue with hold parameters #DVT prophylaxis - mechanical Dispo: Discharging tomorrow to STR VS,Fishbone, I+O VS, Fishbone, I+O Vital Signs Date Time Temp Pulse Resp B/P (MAP) Pulse Ox O2 Delivery O2 Flow Rate FiO2 05/27/19 09:00 80 107/57 05/27/19 06:00 99.7 20 91 I&O- Last 24 Hours up to 6 AM 05/27/19 05:59 Intake Total 1140 ml Output Total 0 ml Balance 1140 ml MARIE SEGUNDO MD May 27, 2019 13:30
[2019-05-27 14:00] VITALS: BP 108/52
[2019-05-27] MEDS: FOLIC ACID 1 MG TAB PO SCH (21:07)
[2019-05-27] MEDS: ATORVASTATIN 10 MG TAB PO SCH (21:07)
[2019-05-27 22:00] VITALS: BP 109/60
--- NOTE | 2019-05-27 22:31 | DS.PDOC ---
Discharge Summary General Date of Admission May 19, 2019 at 01:16 Date of Discharge 05/28/2019 Attending Physician: MARIE SEGUNDO MD Discharge Summary PROCEDURES PERFORMED DURING STAY: Large volume Paracentesis for 2.4L on 05/24/2019 ADMITTING DIAGNOSES: 1. Failure to thrive DISCHARGE DIAGNOSES: 1. Failure to thrive 2. Alcoholic cirrhosis 3. Severe malnutrition 4. Hypoalbunemia 5. Chronic pancreatitis 6. Chronic diarrhea 7. Smoking COMPLICATIONS/CHIEF COMPLAINT: Cirrhosis. HISTORY OF PRESENT ILLNESS: 68 year old woman with alcoholic cirrhosis, chronic pancreatitis, gastrojejunostomy due to failed Wipple procedure in 2013, chronic diarrhea, severe malnutrition , severe hypoalbuminemia, chronic hyponatremia, failure to thrive, smoker, no alcohol intake for 5 months called the EMS for weakness and unable to get out of the couch. EMS found on her couch soiled in feces reporting that she had not moved for 2 days, with her loved ones being out of town and unable to use the walker for 2 to 3 weeks due to weakness. She also complained of early satiety, abdominal girth and brown diarrhea 5 to 6 times a day. She also reported severe bilateral knee pain and so cannot bear weight. HOSPITAL COURSE: In the ED patient is found to have severe generalized anasarca with severe hypalbuminemia, hyponatremia, hyperkalemia, SEVERE Malnutrition, failure to thrive, unable to do her ADLS , unable to ambulate. She was admitted for the severe volume overload, malnutrition and severe electrolyte abnormalities. This admission mostly focused on her volume status and safe discharge to short term rehabilitation after which she will hopefully be able to return home safely. 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 We deferred hepatology at this time to focus on her failure to thrive and will follow up outpatient with her PCP for hepatology referral. #Anasarca with significant ascites: Due to severe malnutrition and severe hypoalbuminemia in the setting of alcoholic cirrhosis and chronic pancreatitis with pancreatic insufficiency caused chronic diarrhea. - s/p paracentesis and removal of 2.4L on 05/25, albumin and lasix - was continued on home lasix #Severe protein calorie malnutrition: abdominal girth contributing to early satiety -nutrition was consulted to add suggest high yield supplements #anemia: A result of the marrow suppressive chronic effects of alcohol, malnutrition and cirrhosis. Was monitored and heparin products avoided. #Hypokalemia: resolved with repletions. #Hyponatremia: due to cirrhosis of liver, hypervolemia, malnutrition with very low solute in diet, remained stable. #Severe generalized deconditioning,failure to thrive, unable to ambulate unable to do ADLS: is now being discharged to [facility] for conditioning before she can return home. #Chronic asthma/ interstitial lung disease/ smoker: did not require PRN albuterol. Declined cessation products. #Chronic diarrhea: Secondary to chronic pancreatitis, improved. #Hypothyroidism: continued Synthroid #HTN: was continued on metoprolol. DISCHARGE MEDICATIONS: Please see below. ALLERGIES: Please see below. PHYSICAL EXAMINATION ON DISCHARGE: VITAL SIGNS: Please see below. General: NAD, chronically ill appearing, pale sitting up in bed HEENT: NC/AT, EOMI, PERRL Lungs: CTA B/L, diminished breath sounds, scattered wheezes Heart: +S1S2, RRR Abd: normoactive bowel sounds, soft, mild tenderness to palpation, distended, +shifting dullness Ext: no edema LABORATORY DATA: Please see below. IMAGIN05/22/2019: CT abdomen and pelvis: Significantly increased bilateral pleural effusions and ascites as well as inflammatory stranding through the mesentery with reactive adenopathy. Findings are nonspecific. PROGNOSIS: poor ACTIVITY: As tolerated DIET: Mechanical soft DISCHARGE PLAN: To short term rehabilitation for conditioning before she can return home DISPOSITION: Short term rehabilitation DISCHARGE INSTRUCTIONS: 1. Please follow up with your PCP in the next two weeks and request hepatology referral ITEMS TO FOLLOWUP ON ON OUTPATIENT: 1. Failure to thrive - being discharged to [facility] with the hope that she may regain strength to return home to care for herself 2. Severe malnutrition 3. Decompensated alcoholic cirrhosis - outpatient referral to hepatology for treatment optimization DISCHARGE CONDITION: Stable TIME SPENT ON DISCHARGE: Greater than 30 minutes. Vital Signs/I&Os Vital Signs Date Time Temp Pulse Resp B/P (MAP) Pulse Ox O2 Delivery O2 Flow Rate FiO2 05/27/19 21:00 97 113/60 05/27/19 14:00 98.4 20 93 I&O- Last 24 Hours up to 6 AM 05/27/19 06:00 Intake Total 1200 ml Output Total 0 ml Balance 1200 ml Laboratory Data Labs 24H Laboratory Tests 2 05/27/19 18:27: Ammonia 38H Microbiology Microbiology 05/18/19 Blood Culture - Final, Complete NO GROWTH AFTER 5 DAYS 05/18/19 Blood Culture - Final, Complete NO GROWTH AFTER 5 DAYS 05/25/19 Gram Stain - Final, Complete 05/25/19 Body Fluid Culture - Final, Complete 05/19/19 Gastrointestinal Tract Panel (PCR) - Final, Complete 05/18/19 Urine Culture - Final, Complete Discharge Medications Scheduled Atorvastatin Calcium (Atorvastatin Calcium) 10 Mg Tablet, 10 MG PO QHS, (Reported) Calcium Carbonate (Calcium) 500 Mg Tab.chew, 500 MG PO DAILY, (Reported) Citalopram Hydrobromide (Citalopram HBr) 20 Mg Tablet, 20 MG PO DAILY, (Reported) Ferrous Sulfate (Iron) 325 Mg Tablet, 325 MG PO DAILY, (Reported) Folic Acid (Folic Acid) 1 Mg Tablet, 1 MG PO QHS, (Reported) Furosemide (Furosemide) 40 Mg Tablet, 40 MG PO DAILY, (Reported) Levothyroxine Sodium (Synthroid) 50 Mcg Tablet, 50 MCG PO DAILY, (Reported) Magnesium Oxide (Magnesium Oxide) 400 Mg Tablet, 800 MG PO BID, (Reported) Metoprolol Tartrate (Metoprolol Tartrate) 25 Mg Tablet, 25 MG PO QHS, (Reported) Pantoprazole Sodium (Protonix) 40 Mg Tab, 40 MG PO DAILY, (Reported) Spironolactone (Spironolactone) 50 Mg Tablet, 50 MG PO BID, (Reported) Thiamine HCl (Thiamine HCl) 100 Mg Tablet, 100 MG PO DAILY, (Reported) Zinc (Zinc) 50 Mg Tablet, 50 MG PO DAILY, (Reported) Scheduled PRN Albuterol Sulfate (Proair Hfa) 8.5 Gm Hfa.aer.ad, 2 PUFF INH Q4H PRN for SHORTNESS OF BREATH, (Reported) Allergies Coded Allergies: No Known Allergies (Verified , 05/08/19) MARIE SEGUNDO MD May 27, 2019 22:30
[2019-05-27] MEDS ORDERED: LACTULOSE 20 GM/30 ML SYRUP UD PO ONE (23:30)
[2019-05-28] MEDS: ALBUTEROL SULFATE 2.5 MG/0.5 ML INH NEB SOLN NEB SCH ×2 (00:16→07:18)
[2019-05-28 06:00] VITALS: BP 109/60
[2019-05-28] MEDS: LEVOTHYROXINE 50MCG TABLET (0.05MG) PO SCH (06:10)
[2019-05-28] MEDS: SLF 3 ML SYR IV SCH (06:10)
[2019-05-28 08:30] VITALS: BP 100/52
[2019-05-28 09:00] VITALS: BP 100/54
[2019-05-28] MEDS: METOPROLOL TART 12.5 MG PER 1/2 TAB PO SCH (09:00)
[2019-05-28] MEDS: FUROSEMIDE 20 MG/2 ML VIAL (J1940) IV SCH (09:00)
[2019-05-28] MEDS: THIAMINE 100 MG TAB PO SCH (09:39)
[2019-05-28] MEDS: PANTOPRAZOLE 40MG TAB (PROTONIX) PO SCH (09:40)
[2019-05-28] MEDS: FERROUS SULFATE 325MG TAB PO SCH (09:40)
[2019-05-28] MEDS: CitaloPRAM (CeleXA) 20 MG TAB PO SCH (09:40)
== END 2019-05-28 11:35 | DRG 432 ==
LOC: M ED 18:01 → M ED INP 05-19 01:16 → M PCU 05-19 03:58 → M MSPAV 05-20 15:05
PROVIDERS: ADMIT Internal Medicine Nephrology; ATTEND Internal Medicine
PROC: 0W9G3ZZ Drainage of Peritoneal Cavity, Percutaneous Approach (ICD-10-PCS; principal; 2019-05-25 15:00)
DX: K70.31 Alcoholic cirrhosis of liver with ascites (principal); E43 Unspecified severe protein-calorie malnutrition; K86.1 Other chronic pancreatitis; E87.1 Hypo-osmolality and hyponatremia; M25.562 Pain in left knee; F17.200 Nicotine dependence, unspecified, uncomplicated; M25.561 Pain in right knee; E87.5 Hyperkalemia; D64.9 Anemia, unspecified; E03.9 Hypothyroidism, unspecified; F32.9 Major depressive disorder, single episode, unspecified; K52.9 Noninfective gastroenteritis and colitis, unspecified; J45.909 Unspecified asthma, uncomplicated; R73.01 Impaired fasting glucose; M81.0 Age-related osteoporosis without current pathological fracture; Z79.899 Other long term (current) drug therapy; Z98.41 Cataract extraction status, right eye; Z93.4 Other artificial openings of gastrointestinal tract status